=== PATIENT | male | born 1985 | race Caucasian/White ===

== ENCOUNTER 2021-06-27 07:20 | Inpatient (IN) ==
[2021-06-27] MEDS ORDERED: SODIUM CHLORIDE 0.9% 1000ML 1,000 ML IV ONE (07:41)
[2021-06-27] MEDS ORDERED: LORazepam 2 MG/4 ML VIAL IV STA (07:57)
[2021-06-27] MEDS ORDERED: MULTI-VITAMIN INFUSION 10 ML, THIAMINE HCL 100 MG, FOLIC ACID 1 MG in SODIUM CHLORIDE 0... IV ONE (07:57)
--- NOTE | 2021-06-27 07:57 | Emergency Department Note ---
Impression & Plan Alcohol withdrawal syndrome ED Provider Note INFORMANT: Patient ED PROVIDER(S): Jerrell Alvarenga MD CHIEF COMPLAINT: Alcohol withdrawal PLAN: Disposition: Admitted Condition: Good Outpatient prescription management: none Referral: None MEDICAL DECISION MAKING: Patient sent in due to complaints of possible alcohol withdrawal. He was tachycardic. He was tremulous. He was given IV Ativan, normal saline, and a banana bag. He did feel better with this. His blood work revealed an un remarkable CBC and chemistry panel. His LFTs were elevated which is concerning with his history of his significant alcohol abuse. The patient was also found to have possible UTI and urinalysis but denied urinary symptoms. He was covered with IV Rocephin. I discussed further management in the hospital and the patient was in agreement. Consultation was made with the [employer] [facility] service. The patient was evaluated in the ER admitted for further management. Triage Nursing notes reviewed and agree them. Vital Signs: reviewed and remarkable for tachycardia Differential diagnosis: Alcohol withdrawal, alcohol abuse, overdose, toxicologic, infection, hypoglycemia, electrolyte abnormalities, cardiac sources, intracerebral event, neurologic, trauma, as well as other pathologies. Diagnostics interpreted by me: ECG: Twelve-lead ECG reveals a normal sinus rhythm at 82 bpm. Anterior T wave abnormality present. No ST elevation or depression. Prolonged QT. Cardiac Monitoring: Cardiac monitoring ordered by me: The patient was placed on continuous cardiac monitoring and observed. It revealed a normal sinus rhythm at 95 beats per minute without ectopy or evidence of dysrhythmia. Imaging studies: Deferred HPI: The patient is a 35 year old male who presents to the Emergency Room with complaints of alcohol withdrawal. This started this morning and is worst he has experienced. Hx of alcohol abuse and withdrawal. The patient also notes the following associated symptoms, shakiness, nausea, diaphoresis. Notes drinking from morning til night.10-13 drinks per day. The patient has found no relieving factors. Current pain is rated as 0/10. Pt denies LOC, headache, fevers, chills, visual changes, neck pain, chest pain, breathing difficulties, vomiting, abdominal pain, back pain, melena, hematochezia, urinary symptoms, numbness, weakness, lymphadenopathy, rash, or other complaints. ROS: See above HPI for pertinent positives & negatives. A total of 10 systems reviewed and were otherwise negative. PAST MEDICAL HISTORY:See Below , alcohol abuse PAST SURGICAL HISTORY:See Below, FAMILY HISTORY:See Below SOCIAL HISTORY:See Below, +etoh HOME MEDICATIONS:See Below ALLERGIES:See Below VITALS:See Below PHYSICAL EXAMINATION: GENERAL: Awake, alert, uncomfortable-appearing, in no distress HENT: Normocephalic, atraumatic. Oropharynx unremarkable. EYES: Normal conjunctiva. Sclera non-icteric. NECK: Inspection normal. Non-tender. Supple. No nuchal rigidity. FROM. No masses. RESPIRATORY: Clear to auscultation. No wheezes. No rales. Normal respiratory effort. CARDIAC: Tachycardic rate. Normal rhythm. No murmurs. No rubs. Extremities warm and well perfused. Pulses equal. No JVD. GI: Soft, non-distended. No tenderness to palpation. No rebound or guarding. No masses. RECTAL: Deferred. MUSCULOSKELETAL: Atraumatic. Chest examination reveals no tenderness. The back is symmetrical on inspection without obvious abnormality. There is no CVA tenderness to palpation. No joint edema. LOWER EXTREMITIES: Calves are equal size bilaterally and non-tender. No edema. No discoloration. NEURO: Normal sensorium. No sensory or motor deficits noted. SKIN: No rash or jaundice noted. Jerrell Alvarenga MD Past Med/Surg History Medical History No significant medical problems Surgical History No significant past surgical history Family History Other Family history non-contributory Social History Smoking Status: Current every day smoker Second Hand Exposure: No; Do You Dip or Chew Tobacco: No; Tobacco Cessation Education Requested by Patient: No Hx Alcohol Use: Yes Alcohol type: beer and hard liquor Alcohol Intake Frequency Comment: 10-13 drinks/day for the past 2 weeks. History of alochol abuse with binges Hx Substance Use: No Preferred Language: Norwegian Communication Ability: Effective Pipeline Systems Operator Required: No Beliefs That Will Affect Care: None Current Living Situation: Alone How many Children do You have: 0 Other Information That Helps Us Care for You: No Feels Safe at Home: Yes Assistive Devices: None Home Meds Home Medications Medication Instructions Recorded Confirmed No Known Home Medications 06/27/21 06/27/21 Results & Data (ED) Vital Signs Vital Signs - 24 hr 06/27/21 07:20 06/27/21 07:25 06/27/21 07:30 Temperature 36.9 C Temperature Source Oral Pulse Rate 94 H 85 87 Pulse Rate [Apical] Pulse Rate from SpO2 Sensor 88 86 Pulse Rhythm Regular Pulse Rhythm [Apical] Pulse Strength Normal Pulse Strength [Apical] Respiratory Rate 16 15 Respiratory Effort / Characteristics Non-Labored Spontaneous Respiratory Depth Normal Respiratory Pattern Regular Blood Pressure 136/92 136/92 121/79 Blood Pressure [Right Arm] Blood Pressure Mean 106 106 93 Blood Pressure Mean [Right Arm] Blood Pressure Position Lying Blood Pressure Position [Right Arm] Pulse Oximetry 100 100 100 Oxygen Delivery Method Room Air Room Air Room Air Sepsis Recent Fever Within 48 Hours No Sepsis New/Unexplained Change in Mental Status N/A Sepsis Action Taken by Nursing No Action Required 06/27/21 08:01 06/27/21 08:30 06/27/21 09:01 Temperature Temperature Source Pulse Rate 97 H 81 Pulse Rate [Apical] Pulse Rate from SpO2 Sensor 94 H 82 Pulse Rhythm Pulse Rhythm [Apical] Pulse Strength Pulse Strength [Apical] Respiratory Rate 13 15 Respiratory Effort / Characteristics Respiratory Depth Respiratory Pattern Blood Pressure 131/73 124/71 113/75 Blood Pressure [Right Arm] Blood Pressure Mean 92 88 87 Blood Pressure Mean [Right Arm] Blood Pressure Position Blood Pressure Position [Right Arm] Pulse Oximetry 100 100 Oxygen Delivery Method Room Air Room Air Room Air Sepsis Recent Fever Within 48 Hours Sepsis New/Unexplained Change in Mental Status Sepsis Action Taken by Nursing 06/27/21 09:30 06/27/21 10:00 06/27/21 10:30 Temperature Temperature Source Pulse Rate 84 77 84 Pulse Rate [Apical] Pulse Rate from SpO2 Sensor 83 76 84 Pulse Rhythm Pulse Rhythm [Apical] Pulse Strength Pulse Strength [Apical] Respiratory Rate 15 16 15 Respiratory Effort / Characteristics Respiratory Depth Respiratory Pattern Blood Pressure 122/75 116/74 110/68 Blood Pressure [Right Arm] Blood Pressure Mean 90 88 82 Blood Pressure Mean [Right Arm] Blood Pressure Position Blood Pressure Position [Right Arm] Pulse Oximetry 100 100 100 Oxygen Delivery Method Room Air Sepsis Recent Fever Within 48 Hours Sepsis New/Unexplained Change in Mental Status Sepsis Action Taken by Nursing 06/27/21 11:00 06/27/21 11:20 Temperature Temperature Source Pulse Rate 88 Pulse Rate [Apical] 78 Pulse Rate from SpO2 Sensor 87 Pulse Rhythm Pulse Rhythm [Apical] Regular Pulse Strength Pulse Strength [Apical] Normal Respiratory Rate 18 16 Respiratory Effort / Characteristics Non-Labored Spontaneous Respiratory Depth Normal Respiratory Pattern Blood Pressure 119/70 Blood Pressure [Right Arm] 111/65 Blood Pressure Mean 86 Blood Pressure Mean [Right Arm] 80 Blood Pressure Position Blood Pressure Position [Right Arm] Sitting Pulse Oximetry 100 100 Oxygen Delivery Method Room Air Sepsis Recent Fever Within 48 Hours Sepsis New/Unexplained Change in Mental Status Sepsis Action Taken by Nursing Laboratory Data Result diagrams: 06/27/21 07:47 06/27/21 07:47 Lab Results 06/27/21 06/27/21 06/27/21 Range/Units 07:47 07:47 07:47 WBC 6.57 (4.8-10.8) K/uL RBC 3.84 L (4.7-6.1) M/uL Hgb 12.1 L (14.0-18.0) g/dL Hct 34.8 L (42-52) % MCV 90.6 (80-100) fL MCH 31.5 (25-34) pg MCHC 34.8 (32-36) g/dL RDW Std Deviation 40.1 (36.4-46.3) fL RDW Coeff of Courtney 12.1 (11.5-14.5) % Plt Count 155 (130-400) K/uL MPV 10.0 (7.4-10.4) fL Immature Gran % (Auto) 0.2 % Neut % (Auto) 76.3 % Lymph % (Auto) 13.7 % Rogers % (Auto) 9.1 % Eos % (Auto) 0.2 % Baso % (Auto) 0.5 % Neut # (Auto) 5.02 (1.4-6.5) K/uL Lymph # (Auto) 0.90 L (1.2-3.4) K/uL Rogers # (Auto) 0.60 H (0.11-0.59) K/uL Eos # (Auto) 0.01 (0-0.5) K/uL Baso # (Auto) 0.03 (0-0.2) K/uL Immature Gran # (Auto) 0.01 (0.00-0.02) K/uL Sodium 132 L (136-145) mmol/L Potassium 3.4 L (3.5-5.1) mmol/L Chloride 96 L (98-107) mmol/L Carbon Dioxide 26 (21-32) mmol/L Anion Gap 11.0 (3-11) BUN 7 (7-18) mg/dl Creatinine 0.90 (0.6-1.4) mg/dl Est Cr Clr Drug Dosing 121.4 ml/min Est GFR ( Amer) 128.7 ml/min Est GFR (Non-Af Amer) 111.0 ml/min BUN/Creatinine Ratio 7.3 L (10-20) Glucose 108 H (70-99) mg/dl Calcium 8.9 (8.5-10.1) mg/dl Magnesium (1.8-2.4) mg/dl Total Bilirubin 1.0 (0.2-1) mg/dl Direct Bilirubin 0.4 H (0-0.2) mg/dl AST 249 H (15-37) U/L ALT 272 H (12-78) U/L Alkaline Phosphatase 82 (45-117) U/L Total Protein 7.1 (6.4-8.2) gm/dl Albumin 3.9 (3.4-5.0) gm/dl Urine Color Urine Appearance (Clear) Urine pH (4.5-7.5) Ur Specific [place] (1.000-1.030) Urine Protein (Negative) Urine Glucose (UA) (Negative) Urine Ketones (Negative) Urine Blood (Negative) Urine Nitrite (Negative) Urine Bilirubin (Negative) Urine Urobilinogen (Negative) Ur Leukocyte Esterase (Negative) Urine WBC (Auto) (0-5) /hpf Urine RBC (Auto) (0-4) /hpf U Hyaline Cast (Auto) (0-5) /lpf U Epithel Cells (Auto) (0-5) /lpf Urine Bacteria (Auto) (Negative) Ethyl Alcohol mg/dL 5.8 H (0-3) mg/dl COVID-19 Eval Order SARS-CoV-2 (PCR) (Negative) 06/27/21 06/27/21 06/27/21 Range/Units 07:47 08:10 08:10 WBC (4.8-10.8) K/uL RBC (4.7-6.1) M/uL Hgb (14.0-18.0) g/dL Hct (42-52) % MCV (80-100) fL MCH (25-34) pg MCHC (32-36) g/dL RDW Std Deviation (36.4-46.3) fL RDW Coeff of Courtney (11.5-14.5) % Plt Count (130-400) K/uL MPV (7.4-10.4) fL Immature Gran % (Auto) % Neut % (Auto) % Lymph % (Auto) % Rogers % (Auto) % Eos % (Auto) % Baso % (Auto) % Neut # (Auto) (1.4-6.5) K/uL Lymph # (Auto) (1.2-3.4) K/uL Rogers # (Auto) (0.11-0.59) K/uL Eos # (Auto) (0-0.5) K/uL Baso # (Auto) (0-0.2) K/uL Immature Gran # (Auto) (0.00-0.02) K/uL Sodium (136-145) mmol/L Potassium (3.5-5.1) mmol/L Chloride (98-107) mmol/L Carbon Dioxide (21-32) mmol/L Anion Gap (3-11) BUN (7-18) mg/dl Creatinine (0.6-1.4) mg/dl Est Cr Clr Drug Dosing ml/min Est GFR ( Amer) ml/min Est GFR (Non-Af Amer) ml/min BUN/Creatinine Ratio (10-20) Glucose (70-99) mg/dl Calcium (8.5-10.1) mg/dl Magnesium 2.6 H (1.8-2.4) mg/dl Total Bilirubin (0.2-1) mg/dl Direct Bilirubin (0-0.2) mg/dl AST (15-37) U/L ALT (12-78) U/L Alkaline Phosphatase (45-117) U/L Total Protein (6.4-8.2) gm/dl Albumin (3.4-5.0) gm/dl Urine Color Yellow Urine Appearance Clear (Clear) Urine pH 8.0 H (4.5-7.5) Ur Specific [place] 1.006 (1.000-1.030) Urine Protein Negative (Negative) Urine Glucose (UA) Negative (Negative) Urine Ketones Negative (Negative) Urine Blood Negative (Negative) Urine Nitrite Positive A (Negative) Urine Bilirubin Negative (Negative) Urine Urobilinogen Negative (Negative) Ur Leukocyte Esterase Trace H (Negative) Urine WBC (Auto) 1-5 (0-5) /hpf Urine RBC (Auto) 0-4 (0-4) /hpf U Hyaline Cast (Auto) 0 (0-5) /lpf U Epithel Cells (Auto) 10-20 H (0-5) /lpf Urine Bacteria (Auto) 2+ H (Negative) Ethyl Alcohol mg/dL (0-3) mg/dl COVID-19 Eval Order Covid19 at [facility] SARS-CoV-2 (PCR) (Negative) 06/27/21 Range/Units 08:10 WBC (4.8-10.8) K/uL RBC (4.7-6.1) M/uL Hgb (14.0-18.0) g/dL Hct (42-52) % MCV (80-100) fL MCH (25-34) pg MCHC (32-36) g/dL RDW Std Deviation (36.4-46.3) fL RDW Coeff of Courtney (11.5-14.5) % Plt Count (130-400) K/uL MPV (7.4-10.4) fL Immature Gran % (Auto) % Neut % (Auto) % Lymph % (Auto) % Rogers % (Auto) % Eos % (Auto) % Baso % (Auto) % Neut # (Auto) (1.4-6.5) K/uL Lymph # (Auto) (1.2-3.4) K/uL Rogers # (Auto) (0.11-0.59) K/uL Eos # (Auto) (0-0.5) K/uL Baso # (Auto) (0-0.2) K/uL Immature Gran # (Auto) (0.00-0.02) K/uL Sodium (136-145) mmol/L Potassium (3.5-5.1) mmol/L Chloride (98-107) mmol/L Carbon Dioxide (21-32) mmol/L Anion Gap (3-11) BUN (7-18) mg/dl Creatinine (0.6-1.4) mg/dl Est Cr Clr Drug Dosing ml/min Est GFR ( Amer) ml/min Est GFR (Non-Af Amer) ml/min BUN/Creatinine Ratio (10-20) Glucose (70-99) mg/dl Calcium (8.5-10.1) mg/dl Magnesium (1.8-2.4) mg/dl Total Bilirubin (0.2-1) mg/dl Direct Bilirubin (0-0.2) mg/dl AST (15-37) U/L ALT (12-78) U/L Alkaline Phosphatase (45-117) U/L Total Protein (6.4-8.2) gm/dl Albumin (3.4-5.0) gm/dl Urine Color Urine Appearance (Clear) Urine pH (4.5-7.5) Ur Specific [place] (1.000-1.030) Urine Protein (Negative) Urine Glucose (UA) (Negative) Urine Ketones (Negative) Urine Blood (Negative) Urine Nitrite (Negative) Urine Bilirubin (Negative) Urine Urobilinogen (Negative) Ur Leukocyte Esterase (Negative) Urine WBC (Auto) (0-5) /hpf Urine RBC (Auto) (0-4) /hpf U Hyaline Cast (Auto) (0-5) /lpf U Epithel Cells (Auto) (0-5) /lpf Urine Bacteria (Auto) (Negative) Ethyl Alcohol mg/dL (0-3) mg/dl COVID-19 Eval Order SARS-CoV-2 (PCR) NEGATIVE (Negative) Administered Medications Folic Acid (Folic Acid 1 Mg Tab) 1 mg PO QA FREDI Stop: 07/27/21 13:59 Last Admin: 06/27/21 14:34 Dose: 1 mg Documented by: [id number] Sodium Chloride (Nss 1000ml) 1,000 mls @ 125 mls/hr IV .Q8H FREDI Stop: 07/27/21 13:20 Last Admin: 06/27/21 14:33 Dose: 125 mls/hr Documented by: [id number] Thiamine HCl (Thiamine Hcl 100 Mg Tab) 100 mg PO QAM FREID Stop: 07/27/21 13:59 Last Admin: 06/27/21 14:34 Dose: 100 mg Documented by: [id number] Discontinued Medications Gabapentin (Gabapentin 600 Mg Tab) 1,200 mg PO NOW ONE Stop: 06/27/21 14:01 Last Admin: 06/27/21 13:47 Dose: 1,200 mg Documented by: [id number] Sodium Chloride (Nss 1000ml) 1,000 mls @ 999 mls/hr IV .Q1H1M ONE Stop: 06/27/21 08:41 Last Infusion: 06/27/21 08:39 Dose: 0 mls/hr Documented by: [id number] Admin: 06/27/21 07:57 Dose: 999 mls/hr Documented by: [id number] Multivitamins 10 ml/ Thiamine HCl 100 mg/ Folic Acid 1 mg/Sodium Chloride 1,011.2 mls @ 1,011.2 mls/hr IV .Q1H ONE Stop: 06/27/21 08:56 Last Infusion: 06/27/21 09:44 Dose: 0 mls/hr Documented by: [id number] Admin: 06/27/21 08:39 Dose: 1,011.2 mls/hr Documented by: [id number] Lorazepam (Ativan) 2 mg in 4 mls @ 4 mls/min IV NOW STA Stop: 06/27/21 07:58 Last Admin: 06/27/21 08:08 Dose: 4 mls/min Documented by: [id number] Ceftriaxone Sodium (Rocephin) 2,000 mg in 70 mls @ 140 mls/hr IV NOW STA Stop: 06/27/21 11:55 Last Infusion: 06/27/21 13:00 Dose: 0 mls/hr Documented by: [id number] Admin: 06/27/21 11:48 Dose: 140 mls/hr Documented by: [id number] Ondansetron HCl (Ondansetron Inj 2 Mg/Ml 2 Ml Vial) 4 mg IV NOW STA Stop: 06/27/21 08:02 Last Admin: 06/27/21 08:08 Dose: 4 mg Documented by: [id number] Potassium Chloride (Potassium Chloride Crtab 20 Meq Tabcr) 40 meq PO NOW STA Stop: 06/27/21 12:41 Last Admin: 06/27/21 14:33 Dose: 40 meq Documented by: [id number] Discharge Plan Visit Data Chief Complaint: Alcohol Withdrawal Stated Complaint: ALCOHOL WITHDRAWAL ED Provider: Jerrell Alvarenga Discharge Problem: Alcohol withdrawal syndrome Patient Disposition: Admitted As Inpatient Discharge Instructions Interventions: ED Discharge Assessment Last Done: 06/27/21 12:40
[2021-06-27] MEDS ORDERED: ONDANSETRON INJ 2 MG/ML 2 ML VIAL IV STA (08:01)
[2021-06-27 08:16] LABS: Basophils # (auto) 0.03 K/uL (0-0.2); Basophils % (auto) 0.5 %; Eosinophils # (auto) 0.01 K/uL (0-0.5); Eosinophils % (auto) 0.2 %; Hematocrit (blood only) 34.8 % (42-52); Hemoglobin 12.1 g/dL (14.0-18.0); Immature Granulocytes # (auto) 0.01 K/uL (0.00-0.02); Immature Granulocytes % (auto) 0.2 %; Lymphocytes % (auto) 13.7 %; Mean Corpuscular Hemoglobin 31.5 pg (25-34); Mean Corpuscular Hgb Conc 34.8 g/dL (32-36); Mean Corpuscular Volume 90.6 fL (80-100); Monocytes % (auto) 9.1 %; Neutrophils # (auto) 5.02 K/uL (1.4-6.5); Neutrophils % (auto) 76.3 %; Platelet Count 155 K/uL (130-400); RDW Coefficient of Variation 12.1 % (11.5-14.5); RDW Standard Deviation 40.1 fL (36.4-46.3); Red Blood Count 3.84 M/uL (4.7-6.1); White Blood Count 6.57 K/uL (4.8-10.8)
[2021-06-27 08:28] LABS: Appearance Urine Clear (Clear); Bacteria Urine Automated 2+ (Negative); Bilirubin Urine Negative (Negative); Blood Urine Negative (Negative); Cast Urine Automated 0 /lpf (0-5); Color Urine Yellow; Glucose Urine UA Negative (Negative); Ketones Urine Negative (Negative); Leukocyte Esterase Urine Trace (Negative); Nitrite Urine Positive (Negative); Protein Urine Negative (Negative); RBC Urine Automated 0-4 /hpf (0-4); Specific Gravity Urine 1.006 (1.000-1.030); Urobilinogen Urine Negative (Negative)
[2021-06-27 08:34] LABS: Albumin Level 3.9 gm/dl (3.4-5.0); BUN Creatinine Ratio 7.3 (10-20); Bilirubin Direct 0.4 mg/dl (0-0.2); Calcium 8.9 mg/dl (8.5-10.1); Creatinine Clr Calc Pharmacy 121.4 ml/min; Est GFR (African American) 128.7 ml/min; Potassium 3.4 mmol/L (3.5-5.1)
--- NOTE | 2021-06-27 08:34 | Electrocardiogram Report ---
Test Reason : Blood Pressure : / mmHG Vent. Rate : 082 BPM Atrial Rate : 082 BPM P-R Int : 140 ms QRS Dur : 096 ms QT Int : 438 ms P-R-T Axes : 072 076 072 degrees QTc Int : 511 ms Poor data quality, interpretation may be adversely affected Normal sinus rhythm Prolonged QT Abnormal ECG No previous ECGs available Confirmed by Familia Nava ([id number]) on 06/27/2021 8:34:05 AM Referred By: Confirmed By:Familia Nava
[2021-06-27 08:37] LABS: Total Protein 7.1 gm/dl (6.4-8.2)
[2021-06-27] MEDS ORDERED: cefTRIAXone SODIUM 2,000 MG/70 ML BAG IV STA (11:26)
--- NOTE | 2021-06-27 12:28 | History & Physical Report ---
Date of Service June 27, 2021 Assessment & Plan (1) Alcohol withdrawal syndrome: Plan: -admit to tele -patient presenting from home with concerns for alcohol withdrawal. History of alcohol abuse with binges for the past 3-4 years. Has been drinking 10-13 drinks/day for the past two weeks. -alcohol withdrawal protocol with gabapentin, PRN Ativan -IVF, thiamine, folic acid -psych consult (2) Elevated LFTs: Plan: -AST 249, ALT 272 -likely due to alcohol use -check liver US -trend LFTs (3) Abnormal urinalysis: Plan: -UA suggests possible UTI -s/p IV ceftriaxone in the ED -continue IV ceftriaxone pending culture results -does not appear septic (4) DVT prophylaxis: Plan: -SCDs History of Present Illness Chief Complaint: Alcohol Withdrawal Primary Care Provider: SYLWIA PCP 35 year old male without significant PMH or PSH aside from alcohol abuse who presents to the ED for evaluation of alcohol withdrawal. Patient reports drinking 10-13 drinks/day for the past 2 weeks. Patient reports a history of alcohol abuse for the past 3-4 years. Patient reports he initially only would drink on the weekends however it progressed to drinking several nights/week and going on week long binges. Prior to two weeks ago, patient had been sober for 42 days. He also has been active with [facility] in the past as well. Patient reports last drink was last night around 10pm. At 0200, patient developed nausea, tremors, and anxiety. He was fearful of having an alcohol withdrawal seizure. He does not have a history of alcohol withdrawal seizures. He called EMS and was brought to the ED for further evaluation. Patient reports some vomiting over the past couple of weeks. Denies hematemesis and coffee ground emesis. Diarrhea at times too however denies BRBPR and dark tarry stools. Some intermittent abdominal pain when vomiting. Denies fever and chills. No chest pain and shortness of breath. Denies lightheadedness, dizziness, diaphoresis, and syncopal events. No urinary symptoms. In the ED, labs show K+ 3.4, AST 249, ALT 272. UA suggestive of possible UTI. Patient received IV ceftriaxone, IV lorazepam, banana bag, IV najma, and IVF. Home Medications Medication Instructions Recorded Confirmed Type No Known Home Medications 09/20/21 09/20/21 History Past Med/Surg History Medical History No significant medical problems Surgical History No significant past surgical history Family History Other Family history non-contributory Social History Smoking Status: Current every day smoker Second Hand Exposure: No; Do You Dip or Chew Tobacco: No; Tobacco Cessation Education Requested by Patient: No Hx Alcohol Use: Yes Alcohol type: beer and hard liquor Alcohol Intake Frequency Comment: 10-13 drinks/day for the past 2 weeks. History of alochol abuse with binges Hx Substance Use: No Preferred Language: Nigerian Communication Ability: Effective Building Maintenance Technician Required: No Beliefs That Will Affect Care: None Current Living Situation: Alone How many Children do You have: 0 Other Information That Helps Us Care for You: No Feels Safe at Home: Yes Assistive Devices: None Review of Systems Review of Systems: ROS per HPI, all other systems reviewed and negative Physical Exam Constitutional: WD/WN, vitals as above Eyes: PERRL, conjunctivae normal, anicteric sclerae ENMT: external ear and nose normal, oropharynx normal Respiratory: normal respiratory effort, lungs clear to auscultation Cardiovascular: Rate/Rhythm: regular rate and regular rhythm Vessels: normal peripheral pulses Extremities: no edema Gastrointestinal (Abdomen): normal bowel sounds, soft, nontender, no hepatosplenomegaly Musculoskeletal: no cyanosis or clubbing, extremities motor strength 5/5 Skin: no rashes, warm and dry Neurologic: PERRL, EOMI, accommodation nl, no face palsy, no dysarthria Psychiatric: A+Ox3, euthymic affect Results & Data Results & Data ([facility]) Vital Signs (Past 12 Hours) Vital Signs Temp Pulse Pulse Resp BP BP Pulse Ox 06/27/21 11:20 78 16 111/65 100 06/27/21 11:00 88 18 119/70 100 06/27/21 10:30 84 15 110/68 100 06/27/21 10:00 77 16 116/74 100 06/27/21 09:30 84 15 122/75 100 06/27/21 09:01 81 15 113/75 100 06/27/21 08:30 97 H 13 124/71 100 06/27/21 08:01 131/73 06/27/21 07:30 87 121/79 100 06/27/21 07:25 85 15 136/92 100 06/27/21 07:20 36.9 C 94 H 16 136/92 100 Laboratory Results Short CBC 06/27/21 Range/Units 07:47 WBC 6.57 (4.8-10.8) K/uL Hgb 12.1 L (14.0-18.0) g/dL Hct 34.8 L (42-52) % Plt Count 155 (130-400) K/uL BMP 06/27/21 07:47 Sodium 132 L Potassium 3.4 L Chloride 96 L Carbon Dioxide 26 BUN 7 Creatinine 0.90 Glucose 108 H Calcium 8.9 Liver Function 06/27/21 Range/Units 07:47 Total Bilirubin 1.0 (0.2-1) mg/dl Direct Bilirubin 0.4 H (0-0.2) mg/dl AST 249 H (15-37) U/L ALT 272 H (12-78) U/L Alkaline Phosphatase 82 (45-117) U/L Albumin 3.9 (3.4-5.0) gm/dl Urine 06/27/21 Range/Units 08:10 Urine Color Yellow Urine Appearance Clear (Clear) Urine pH 8.0 H (4.5-7.5) Ur Specific [place] 1.006 (1.000-1.030) Urine Protein Negative (Negative) Urine Glucose (UA) Negative (Negative) Code Status & VTE Plan VTE Prophylaxis Plan VTE Prophylaxis will be ordered: Yes Supervising Physician Co-Signing Physician Notes Patient seen and examined by me, care coordinated with JESSICA Nieto, please refer to her note above for further detail. Pt is a 35 y/o male without significant PMH or PSH aside from alcohol abuse who presents to the ED for evaluation of alcohol withdrawal. Patient reports drinking 10-13 drinks/day for the past 2 weeks. Prior to two weeks ago, patient had been sober for 42 days. Reports last drink was last night around 10pm. At 0200, patient developed nausea, tremors, and anxiety. He was fearful of having an alcohol withdrawal seizure. He does not have a history of alcohol withdrawal seizures. AST 249, ALT 272. UA suggestive of possible UTI. Patient received IV ceftriaxone, IV lorazepam, banana bag, IV najma, and IVF. Currently patient is sitting up in bed, in no acute distress, reports feeling much better already, reports shivering at home and that has subsided. He is awake alert oriented answering questions appropriately. Denies any chest pain, shortness of breath palpitations. Also denies any abdominal pain, or dysuria. Says that he was not eating as much during the past 2 weeks when he was drinking, he just ate in his room, without much difficulty. Abdomen is soft nontender nondistended, positive bowel sounds. Lungs are clear to auscultation by exam and wheezing or Crackles. Heart sounds regular slightly tachycardic. No lower extremity edema. Skin is warm dry, without any rashes. Continue to closely monitor, placed on alcohol withdrawal protocol, await abdominal ultrasound. Michelle Barrow MD
[2021-06-27] MEDS ORDERED: POTASSIUM CHLORIDE CRTAB 20 MEQ TABCR PO STA (12:40)
[2021-06-27] MEDS ORDERED: LORazepam 1 MG/2 ML VIAL IV PRN (13:21)
[2021-06-27] MEDS ORDERED: LORazepam 2 MG/4 ML VIAL IV PRN (13:21)
[2021-06-27] MEDS ORDERED: LORazepam 3 MG/6 ML VIAL IV PRN (13:21)
[2021-06-27] MEDS ORDERED: GABAPENTIN 1200MG ALCOHOL WITHDRAWAL LOAD PO STA (13:21)
[2021-06-27] MEDS ORDERED: ATIVAN IV ALCOHOL WITHDRAWL IV PRN (13:21)
[2021-06-27] MEDS ORDERED: ACETAMINOPHEN 325 MG TAB PO PRN (13:21)
[2021-06-27] MEDS ORDERED: GABAPENTIN 600 MG TAB PO ONE (14:00)
--- NOTE | 2021-06-27 14:30 | Ultrasound Report ---
US liver CLINICAL INDICATION: MN ^elevated LFTs. TECHNIQUE: Multiple real-time sonographic images of the right upper quadrant were obtained. Comparison: None available at the time of this dictation. FINDINGS: The liver is diffusely echogenic in appearance with poor ultrasound penetration, with normal contour, which is consistent with fatty infiltration. Liver measures 18.4 cm in craniocaudal dimension, enlar ged. No focal mass lesions are seen. No intrahepatic ductal dilatation is seen. Layering sludge i s seen in the gallbladder. The gallbladder wall is not thickened,. There is no pericholecystic fluid present. The common duct is normal in caliber, measuring 3 mm at the level of the hepatic artery. A sonographic Gordon's sign was not elicited by the hospice spiritual care coordinator. The visualized portions of the panc reas appear normal. The right kidney shows normal echogenicity, cortical thickness and renal contour. The right kidney sh ows no evidence of hydronephrosis or mass. No ascites or free fluid is seen in Black's pouch. IMPRESSION: 1. No acute abnormality. 2. Layering sludge in the gallbladder without acute cholecystitis. 3. Hepatic steatosis and hepatomegaly. ACT 112: Negative or not required by law. Electronically signed by: Ho Farias M.D. 06/27/2021 2:29 PM
[2021-06-27] MEDS: SODIUM CHLORIDE 0.9% 1000ML 1,000 ML IV SCH ×2 (14:33→20:50)
[2021-06-27] MEDS: THIAMINE HCL 100 MG TAB PO SCH (14:34)
[2021-06-27] MEDS: FOLIC ACID 1 MG TAB PO SCH (14:34)
[2021-06-27] MEDS ORDERED: PIPERACILL/TAZOBAC CONSULT ACTIVE PRN (16:49)
[2021-06-27] MEDS ORDERED: PIPERACILLIN/TAZOBACTAM 4.5 GM in DEXTROSE 5% 100 ML IV ONE (17:00)
[2021-06-27] MEDS: GABAPENTIN 600 MG TAB PO SCH (20:12)
[2021-06-27] MEDS: PIPERACILLIN/TAZOBACTAM 3.375 GM in DEXTROSE 5% 100 ML IV SCH (21:19)
[2021-06-28] MEDS: GABAPENTIN 600 MG TAB PO SCH ×3 (01:13→17:44)
[2021-06-28] MEDS: SODIUM CHLORIDE 0.9% 1000ML 1,000 ML IV SCH ×3 (04:45→21:11)
[2021-06-28] MEDS: PIPERACILLIN/TAZOBACTAM 3.375 GM in DEXTROSE 5% 100 ML IV SCH (05:56)
[2021-06-28 08:12] LABS: Hematocrit (blood only) 30.6 % (42-52); Hemoglobin 10.3 g/dL (14.0-18.0); Mean Corpuscular Hemoglobin 31.2 pg (25-34); Mean Corpuscular Hgb Conc 33.7 g/dL (32-36); Mean Corpuscular Volume 92.7 fL (80-100); Mean Platelet Volume 9.9 fL (7.4-10.4); Platelet Count 123 K/uL (130-400); RDW Coefficient of Variation 12.5 % (11.5-14.5); RDW Standard Deviation 42.6 fL (36.4-46.3); White Blood Count 3.51 K/uL (4.8-10.8)
[2021-06-28 08:23] LABS: Albumin Globulin Ratio 1.1 (0.9-2); Albumin Level 3.1 gm/dl (3.4-5.0); BUN Creatinine Ratio 7.6 (10-20); Bilirubin,Total 1.3 mg/dl (0.2-1); Calcium 8.6 mg/dl (8.5-10.1); Creatinine Clr Calc Pharmacy 142.6 ml/min; Est GFR (African American) 133.1 ml/min; Est GFR (Non-African American) 114.8 ml/min; Globulin 2.7 gm/dl (2.5-4.0); Magnesium 2.6 mg/dl (1.8-2.4); Phosphorus 3.9 mg/dl (2.5-4.9); Potassium 4.2 mmol/L (3.5-5.1); Total Protein 5.9 gm/dl (6.4-8.2)
[2021-06-28] MEDS: FOLIC ACID 1 MG TAB PO SCH (08:37)
[2021-06-28] MEDS: THIAMINE HCL 100 MG TAB PO SCH (08:37)
[2021-06-28] MEDS ORDERED: cefTRIAXone SODIUM 1,000 MG in DEXTROSE 5% 50 ML IV SCH (11:00)
[2021-06-28] MEDS ORDERED: cefTRIAXone SODIUM 2,000 MG in DEXTROSE 5% 50 ML IV SCH ×2 (11:00)
--- NOTE | 2021-06-28 11:32 | Hospitalist Progress Note ---
Date of Service June 28, 2021 Assessment & Plan (1) Alcohol withdrawal syndrome: Plan: -patient presenting from home with concerns for alcohol withdrawal. History of alcohol abuse with binges for the past 3-4 years. Has been drinking 10-13 drinks/day for the past two weeks. -alcohol withdrawal protocol with gabapentin, PRN Ativan -IVF, thiamine, folic acid -psych consult (2) Elevated LFTs: Plan: -AST 249, ALT 272 on admission -likely due to alcohol use -liver US - Gallbladder sludge noted on ultrasound, temperature slightly elevated at 37.6 C, LFTs elevated however in the setting of alcohol abuse. Placed on zosyn and discussed w/ GI- per GI Tbili up very slightly today; may reflect intrahepatic cholestasis. Given pt's normal ALP and CBD of 3 mm, this is not consistent with biliary obstruction/CBD stone/sludge. Would defer MRI/MRCP. Would trend daily LFTs. -Thorough blood work ordered by GI for elevated LFTs as well -trend LFTs (3) Abnormal urinalysis: Plan: -UA suggests possible UTI -s/p IV ceftriaxone in the ED -continue IV ceftriaxone pending culture results -does not appear septic (4) DVT prophylaxis: Plan: -SCDs Admission and Anticipated Discharge Date Admission Date: June 27, 2021 Subjective Patient seen in follow-up of alcohol withdrawal, alcohol abuse, elevated LFTs and gallbladder sludge Patient sitting up in bed, in no acute distress Denies any fevers, chills, chest pain, shortness of breath, abdominal pain, nausea or vomiting, tolerating diet Specifically denies any right upper quadrant pain, also denies any dysuria No hallucinations or tremors Review of Systems Review of Systems: All systems reviewed & are unremarkable except as noted in Subjective Physical Exam Physical Exam: Constitutional: WD/WN, vitals as above Eyes: PERRL, EOMI, conjunctivae normal, anicteric sclerae ENMT: external ear and nose normal, oropharynx normal Respiratory: normal respiratory effort, lungs clear to auscultation Cardiovascular: Rate/Rhythm: regular rate and regular rhythm Vessels: normal peripheral pulses Extremities: no edema Gastrointestinal (Abdomen): normal bowel sounds, soft, nontender Musculoskeletal: no cyanosis or clubbing, extremities motor strength 5/5 Skin: no rashes, warm and dry Neurologic: PERRL, EOMI,no face palsy, no dysarthria Psychiatric: A+Ox3, euthymic affect Results & Data Results & Data ([facility]) Vital Signs (Past 12 Hours) Vital Signs Temp Pulse Pulse Pulse Resp BP Pulse Ox 06/28/21 08:07 36.8 C 79 20 129/62 96 06/28/21 08:00 54 L 06/28/21 04:10 36.7 C 73 14 108/71 99 06/28/21 00:37 36.9 C 58 L 18 106/66 99 06/27/21 23:59 62 Laboratory Results 06/28/21 06/28/21 06/27/21 Range/Units 06:58 06:58 07:47 WBC 3.51 L (4.8-10.8) K/uL RBC 3.30 L (4.7-6.1) M/uL Hgb 10.3 L (14.0-18.0) g/dL Hct 30.6 L (42-52) % MCV 92.7 (80-100) fL MCH 31.2 (25-34) pg MCHC 33.7 (32-36) g/dL RDW Std Deviation 42.6 (36.4-46.3) fL RDW Coeff of Courtney 12.5 (11.5-14.5) % Plt Count 123 L (130-400) K/uL MPV 9.9 (7.4-10.4) fL Sodium 140 D (136-145) mmol/L Potassium 4.2 D (3.5-5.1) mmol/L Chloride 108 H (98-107) mmol/L Carbon Dioxide 24 (21-32) mmol/L Anion Gap 8.0 (3-11) BUN 6 L (7-18) mg/dl Creatinine 0.83 (0.6-1.4) mg/dl Est Cr Clr Drug Dosing 142.6 ml/min Est GFR ( Amer) 133.1 ml/min Est GFR (Non-Af Amer) 114.8 ml/min BUN/Creatinine Ratio 7.6 L (10-20) Glucose 91 (70-99) mg/dl Calcium 8.6 (8.5-10.1) mg/dl Phosphorus 3.9 (2.5-4.9) mg/dl Magnesium 2.6 H 2.6 H (1.8-2.4) mg/dl Total Bilirubin 1.3 H (0.2-1) mg/dl AST 260 H (15-37) U/L ALT 265 H (12-78) U/L Alkaline Phosphatase 60 (45-117) U/L Total Protein 5.9 L (6.4-8.2) gm/dl Albumin 3.1 L (3.4-5.0) gm/dl Globulin 2.7 (2.5-4.0) gm/dl Albumin/Globulin Ratio 1.1 (0.9-2) Medications Administered Current Inpatient Medications Acetaminophen (Acetaminophen 325 Mg Tab) 650 mg PO Q4H PRN PRN Reason: Pain or Fever Stop: 07/27/21 13:20 Folic Acid (Folic Acid 1 Mg Tab) 1 mg PO QAM FREDI Stop: 07/27/21 13:59 Last Admin: 06/28/21 08:37 Dose: 1 mg Documented by: Gabapentin (Gabapentin 600 Mg Tab) 600 mg PO Q8H FREDI Stop: 06/29/21 02:01 Last Admin: 06/28/21 10:11 Dose: 600 mg Documented by: Gabapentin (Gabapentin 600 Mg Tab) 600 mg PO Q12H FREDI Stop: 06/30/21 02:01 Gabapentin (Gabapentin 600 Mg Tab) 600 mg PO Q24H FREDI Stop: 07/01/21 02:01 Lorazepam (Ativan) 1 mg in 2 mls @ 2 mls/min IV UD PRN; Protocol PRN Reason: EtOH Withdrawl AWSS Score 6,7 Stop: 07/27/21 13:20 Lorazepam (Ativan) 3 mg in 6 mls @ 4 mls/min IV ONCE PRN; Protocol PRN Reason: EtOH Withdrawl AWSS Score >=10 Stop: 07/27/21 13:20 Sodium Chloride (Nss 1000ml) 1,000 mls @ 125 mls/hr IV .Q8H FREDI Stop: 07/27/21 13:20 Last Admin: 06/28/21 04:45 Dose: 125 mls/hr Documented by: Lorazepam (Ativan) 2 mg in 4 mls @ 4 mls/min IV UD PRN; Protocol PRN Reason: EtOH Withdrawl AWSS Score 8,9 Stop: 07/27/21 13:20 Piperacillin Sod/Tazobactam (Sod 3.375 gm/ Dextrose) 115 mls @ 28.75 mls/hr IV Q8H FREDI; Protocol Stop: 07/07/21 21:59 Last Infusion: 06/28/21 10:05 Dose: Infused Documented by: Miscellaneous Information (Piperacill/Tazobac Consult Active) 1 ea N/A UD PRN PRN Reason: Consult Stop: 07/27/21 16:48 Thiamine HCl (Thiamine Hcl 100 Mg Tab) 100 mg PO QAM [facility] Stop: 07/27/21 13:59 Last Admin: 06/28/21 08:37 Dose: 100 mg Documented by:
--- NOTE | 2021-06-28 12:18 | Gastrointestinal Consultation ---
Date of Consultation June 28, 2021 Assessment & Plan (1) Elevated LFTs: This is 35-year-old male with history of heavy alcohol use, admitted with symptoms of alcohol withdrawal. Last drink was over the weekend. GI consulted for elevated LFTs. Unclear if these are acute or chronic, however, likely associated with alcohol use. On exam, he is well-appearing, abdomen soft and nontender; not encephalopathic. - Check INR - Evaluate Maddrey's discriminant function to evaluate whether he would benefit from steroids for alc hep - Check acute hepatitis panel, AIH labs, ceruloplasmin, alpha-1 antitrypsin deficiency - Trend LFTs, - Would benefit from outpatient follow-up, recommend he establish with PCP to ensure LFTs trend to normal - Would avoid hepatotoxins, including Tylenol - Recommend strict ETOH avoidance - Recommend patient consider EtOH rehab Thank you for allowing us to participate in the care of this patient. Please call with any acute changes, questions or concerns. Please see addendum below with additional recommendation from my supervising physician. - Supervising Physician Co-Signing Physician Notes I have personally seen and examined the patient with Jayde Sanon PA-C. Her note reflects my exam and findings. I agree with her impression and plan. Patient states he feels better. Hungry. Work up for other liver diseases. Stanley Mcdonald M.D. History of Present Illness Attending Physician: Tripp Barrow MD History of Present Illness This is a 35-year-old male with no significant past medical history admitted after presenting with symptoms of alcohol withdrawal including tremors, anxiety. On arrival, labs notable for AST 249, ALT 272, normal alk phos and T bili, hypokalemia and hyponatremia noted, Hgb 12. UA suggestive of possible UTI. He had a slight temp. Ultrasound abdomen with gallbladder sludge, no acute cholecystitis, no dom dil, hepatic steatosis and hepatomegaly noted. He received IV ABX, IV lorazepam, banana bag, IV Zofran, and IVF. Overnight, he reports his symptoms are improving. Is tolerating a regular diet. When he was drinking, was not eating much in the way of nutrition. Today LFTs largely unchanged, T bili 1.3 denies nausea vomiting, abdominal pain, jaundice, hematemesis, melena or hematochezia, change in bowel habits or appetite, heartburn, chest pain or shortness of breath, leg edema, headaches or rashes. He has been drinking heavily on and off for several years, often on binges. For the last 2 weeks, had been drinking 10-13 drinks per day. He is a professor at the [employer]. Denies IV or intranasal drug use, no herbal meds, Tylenol, NSAIDs, history of liver problems. Home Medications Medication Instructions Recorded Confirmed Type No Known Home Medications 06/27/21 06/27/21 History Patient History Medical History No significant medical problems Surgical History No significant past surgical history Family History Other Family history non-contributory Social History Smoking Status: Current every day smoker Second Hand Exposure: No; Do You Dip or Chew Tobacco: No; Tobacco Cessation Education Requested by Patient: No Hx Alcohol Use: Yes Alcohol type: beer and hard liquor Alcohol Intake Frequency Comment: 10-13 drinks/day for the past 2 weeks. 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 Beliefs That Will Affect Care: None Current Living Situation: Alone How many Children do You have: 0 Other Information That Helps Us Care for You: No Feels Safe at Home: Yes Assistive Devices: None Review of Systems Review of Systems: A complete review of systems was performed and negative except as noted in HPI Physical Exam Constitutional: WD/WN, vitals as above Eyes: Sclera anicteric Respiratory: normal respiratory effort, lungs clear to auscultation Cardiovascular: RRR, no murmur, no edema Gastrointestinal (Abdomen): normal bowel sounds, soft, nontender, no hep atosplenomegaly Skin: no rashes, warm and dry Neurologic: No asterixis Psychiatric: A+Ox3, euthymic affect Results & Data ([facility]) Vital Signs (Past 12 Hours) Vital Signs Temp Pulse Pulse Pulse Resp BP Pulse Ox 06/28/21 08:07 36.8 C 79 20 129/62 96 06/28/21 08:00 54 L 06/28/21 04:10 36.7 C 73 14 108/71 99 06/28/21 00:37 36.9 C 58 L 18 106/66 99 06/27/21 23:59 62 Laboratory Results 06/28/21 06/28/21 06/27/21 Range/Units 06:58 06:58 07:47 WBC 3.51 L (4.8-10.8) K/uL RBC 3.30 L (4.7-6.1) M/uL Hgb 10.3 L (14.0-18.0) g/dL Hct 30.6 L (42-52) % MCV 92.7 (80-100) fL MCH 31.2 (25-34) pg MCHC 33.7 (32-36) g/dL RDW Std Deviation 42.6 (36.4-46.3) fL RDW Coeff of Courtney 12.5 (11.5-14.5) % Plt Count 123 L (130-400) K/uL MPV 9.9 (7.4-10.4) fL Sodium 140 D (136-145) mmol/L Potassium 4.2 D (3.5-5.1) mmol/L Chloride 108 H (98-107) mmol/L Carbon Dioxide 24 (21-32) mmol/L Anion Gap 8.0 (3-11) BUN 6 L (7-18) mg/dl Creatinine 0.83 (0.6-1.4) mg/dl Est Cr Clr Drug Dosing 142.6 ml/min Est GFR ( Amer) 133.1 ml/min Est GFR (Non-Af Amer) 114.8 ml/min BUN/Creatinine Ratio 7.6 L (10-20) Glucose 91 (70-99) mg/dl Calcium 8.6 (8.5-10.1) mg/dl Phosphorus 3.9 (2.5-4.9) mg/dl Magnesium 2.6 H 2.6 H (1.8-2.4) mg/dl Total Bilirubin 1.3 H (0.2-1) mg/dl AST 260 H (15-37) U/L ALT 265 H (12-78) U/L Alkaline Phosphatase 60 (45-117) U/L Total Protein 5.9 L (6.4-8.2) gm/dl Albumin 3.1 L (3.4-5.0) gm/dl Globulin 2.7 (2.5-4.0) gm/dl Albumin/Globulin Ratio 1.1 (0.9-2) Diagnostic Findings US ABD: The liver is diffusely echogenic in appearance with poor ultrasound penetration, with normal contour, which is consistent with fatty infiltration. Liver measures 18.4 cm in craniocaudal dimension, enlarged. No focal mass lesions are seen. No intrahepatic ductal dilatation is seen. Layering sludge is seen in the gallbladder. The gallbladder wall is not thickened,. There is no pericholecystic fluid present. The common duct is normal in caliber, measuring 3 mm at the level of the hepatic artery. A sonographic Gordon's sign was not elicited by the metalworker. The visualized portions of the pancreas appear normal. The right kidney shows normal echogenicity, cortical thickness and renal contour. The right kidney shows no evidence of hydronephrosis or mass. No ascites or free fluid is seen in Black's pouch. IMPRESSION: 1. No acute abnormality. 2. Layering sludge in the gallbladder without acute cholecystitis. 3. Hepatic steatosis and hepatomegaly.
[2021-06-28 13:10] LABS: Hepatitis B Surf Ag Rflx Conf Neg (Neg)
[2021-06-28 13:38] LABS: Hepatitis C IgG 13Yrs+Old_Rflx Neg (Neg)
[2021-06-28] MEDS: cefTRIAXone SODIUM 2,000 MG in DEXTROSE 5% 50 ML IV SCH (14:26)
[2021-06-28] MEDS: POLYETHYLENE (MIRALAX) 17 GM PACK PO SCH (14:28)
--- NOTE | 2021-06-28 15:55 | Psychiatric Consultation ---
Date of Consultation June 28, 2021 Impression / Recommendations Impression 35-year-old male with alcohol abuse presenting in alcohol withdrawal. Psychiatry was consulted for services following hospitalization. Patient was informed as to the higher success rate of abstinence following inpatient rehab. At this time the patient is not interested in inpatient rehab, but is agreeable to take provided psychiatric resources and schedule outpatient appointments in counseling for alcohol abuse. (1) Alcohol withdrawal syndrome: Psychiatry Liaison provided patient with outpatient resources. No further psychiatric intervention at this time Psych History Identifying Data 35-year-old male who presented To the hospital for alcohol withdrawal. Psychiatry consult service was contacted for resources and possible rehab placement. Chief Complaint "I think I want to do things outpatient". History of Present Illness HPI as per psychiatric liaison "Rounded on patient, sitting up in bed. Pleasant and cooperative. Pt. reports that he had lived in the [facility] [place] for 3 years prior to moving to [place] a year ago. He describes himself as always being a social drinker with no abuse issues until the pandemic. Lives alone and had felt isolated with difficulty getting to know people when living in [place]. He feels that his move to [place] was a "good" thing, working at [employer], until and his alcohol use has increased. Denies history of anxiety and depression, states he is only anxious after drinking. He states he may be interested in D&A outpatient services, and would like some time to think about this. It was explained to him that our service can assist him if interested. Rounded on pt. Staff gave pt a drug and alcohol resource book and a recovery booklet from our floor. The pt was very receptive about the information I had to give him. The pt is still unsure of everything that he wants to do after discharge with rehab. The pt stated that he wants to stop drinking and get to the root of the problem of why he has been abusing alcohol like he has been. He stated that his father and his father's partner want him to go into inpatient rehab. He stated that his father and his father's partner have been his rock through all of this and they are very supportive. The pt does not want to go into inpatient rehab at this time due to taking that much time off from his job. He stated that he really does want to look into therapy and outpatient rehab. Staff and pt discussed about AA meetings and the pt stated that he is will to try whatever to get his life back in order. He stated that he does not want to make to many decision till he knows everything that is going on with his health. The pt stated that he would be willing to take psych meds if that is the root of his issues. The pt was very polite and pleasant during the whole interaction. The pt stated at this time he is still unsure if he needs our services. He stated that he would like to keep the option open for our help. Staff told him of course and to let us know if he needs anything." Upon evaluation this afternoon, patient endorsed the above information is accurate. He stated that he does drink to excess, and he knows that it is become problematic. He denies any acute suicidal or homicidal ideation or any psychotic or manic symptoms. Home Medications Medication Instructions Recorded Confirmed Type No Known Home Medications 06/27/21 06/27/21 History Personal History Beliefs That Will Affect Care: None Patient History Medical History No significant medical problems Surgical History No significant past surgical history Family History Other Family history non-contributory Social History Smoking Status: Current every day smoker Second Hand Exposure: No; Do You Dip or Chew Tobacco: No; Tobacco Cessation Education Requested by Patient: No Hx Alcohol Use: Yes Alcohol type: beer and hard liquor Alcohol Intake Frequency Comment: 10-13 drinks/day for the past 2 weeks. 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 Beliefs That Will Affect Care: None Current Living Situation: Alone How many Children do You have: 0 Other Information That Helps Us Care for You: No Feels Safe at Home: Yes Assistive Devices: None Physical Exam Psychiatric: Orientation: alert and oriented x 3 Apperance: appropriately dressed Eye Contact: good eye contact Motor Behavior: no abnormal motor movements Speech: normal rate/rhythm/volume of speech Affect: euthymic affect Mood: + anxious mood Thought Process: goal directed thought process and linear/logical thought process Thought Content: reality based without delusions Suicidal Thoughts: denies suicidal thoughts Homicidal Thoughts: denies homicidal thoughts Hallucinations: no auditory hallucinations and no visual hallucinations Cognition: recent memory grossly intact Estimated Intelligence: average estimated intelligence Insight: + fair insight Judgement: + fair judgement Vital Signs (Past 24 Hours): Last Vital Signs Temp 37.0 C 06/28/21 12:00 Pulse 73 06/28/21 15:46 Resp 18 06/28/21 12:00 BP 126/82 06/28/21 12:00 Pulse Ox 99 06/28/21 12:00 Review of Systems All systems reviewed & are unremarkable except as noted in HPI & below Results & Data ([facility]) Medications Administered Folic Acid (Folic Acid 1 Mg Tab) 1 mg PO QAM FREDI Stop: 07/27/21 13:59 Last Admin: 06/28/21 08:37 Dose: 1 mg Documented by: [id number] Admin: 06/27/21 14:34 Dose: 1 mg Documented by: [id number] Gabapentin (Gabapentin 600 Mg Tab) 600 mg PO Q8H FREDI Stop: 06/29/21 02:01 Last Admin: 06/28/21 10:11 Dose: 600 mg Documented by: [id number] Sodium Chloride (Nss 1000ml) 1,000 mls @ 80 mls/hr IV .[id number] FREDI Stop: 07/27/21 13:20 Last Admin: 06/28/21 12:33 Dose: 125 mls/hr Documented by: [id number] Infusion: 06/28/21 12:33 Dose: 125 mls/hr Documented by: [id number] Admin: 06/28/21 04:45 Dose: 125 mls/hr Documented by: [id number] Infusion: 06/28/21 04:44 Dose: 0 mls/hr Documented by: [id number] Admin: 06/27/21 20:50 Dose: 125 mls/hr Documented by: [id number] Infusion: 06/27/21 20:50 Dose: 125 mls/hr Documented by: [id number] Admin: 06/27/21 14:33 Dose: 125 mls/hr Documented by: [id number] Ceftriaxone Sodium 2,000 mg/ (Dextrose) 70 mls @ 140 mls/hr IV Q24H FREDI Stop: 07/08/21 13:59 Last Infusion: 06/28/21 15:29 Dose: 0 mls/hr Documented by: [id number] Admin: 06/28/21 14:26 Dose: 140 mls/hr Documented by: [id number] Polyethylene Glycol (Polyethylene (Miralax) 17 Gm Pack) 17 gm PO DAILY FREDI Stop: 07/28/21 13:44 Last Admin: 06/28/21 14:28 Dose: 17 gm Documented by: [id number] Thiamine HCl (Thiamine Hcl 100 Mg Tab) 100 mg PO QAM FREDI Stop: 07/27/21 13:59 Last Admin: 06/28/21 08:37 Dose: 100 mg Documented by: [id number] Admin: 06/27/21 14:34 Dose: 100 mg Documented by: [id number] Coding Level of Care Code 13801 [facility] Intl Hosp Care Lvl 2 Diagnoses Alcohol withdrawal syndrome F10.239 Time Spent (min) 40
[2021-06-29] MEDS: GABAPENTIN 600 MG TAB PO SCH ×2 (01:20→13:47)
[2021-06-29] MEDS: SODIUM CHLORIDE 0.9% 1000ML 1,000 ML IV SCH (05:25)
[2021-06-29 05:52] LABS: Hematocrit (blood only) 33.1 % (42-52); Hemoglobin 10.9 g/dL (14.0-18.0); Mean Corpuscular Hemoglobin 30.9 pg (25-34); Mean Corpuscular Hgb Conc 32.9 g/dL (32-36); Mean Corpuscular Volume 93.8 fL (80-100); Mean Platelet Volume 9.7 fL (7.4-10.4); Platelet Count 143 K/uL (130-400); RDW Coefficient of Variation 12.5 % (11.5-14.5); RDW Standard Deviation 42.3 fL (36.4-46.3); Red Blood Count 3.53 M/uL (4.7-6.1); White Blood Count 3.98 K/uL (4.8-10.8)
[2021-06-29 06:04] LABS: Prothrombin Time 10.2 Seconds (9.0-12.0)
[2021-06-29 06:31] LABS: Albumin Level 3.4 gm/dl (3.4-5.0); BUN Creatinine Ratio 7.3 (10-20); Calcium 8.7 mg/dl (8.5-10.1); Creatinine Clr Calc Pharmacy 151.8 ml/min; Est GFR (African American) 136.5 ml/min; Est GFR (Non-African American) 117.8 ml/min; Magnesium 2.2 mg/dl (1.8-2.4); Potassium 3.8 mmol/L (3.5-5.1)
[2021-06-29 06:39] LABS: Albumin Globulin Ratio 1.1 (0.9-2); Bilirubin,Total 0.7 mg/dl (0.2-1); Globulin 3.2 gm/dl (2.5-4.0); Phosphorus 4.7 mg/dl (2.5-4.9); Total Protein 6.6 gm/dl (6.4-8.2)
[2021-06-29] MEDS: FOLIC ACID 1 MG TAB PO SCH (09:08)
[2021-06-29] MEDS: THIAMINE HCL 100 MG TAB PO SCH (09:08)
[2021-06-29] MEDS: POLYETHYLENE (MIRALAX) 17 GM PACK PO SCH (09:08)
[2021-06-29] MEDS: cefTRIAXone SODIUM 2,000 MG in DEXTROSE 5% 50 ML IV SCH (13:50)
--- NOTE | 2021-06-29 14:20 | Hospitalist Progress Note ---
Date of Service June 29, 2021 Assessment & Plan (1) Alcohol withdrawal syndrome: Plan: -patient presenting from home with concerns for alcohol withdrawal. History of alcohol abuse with binges for the past 3-4 years. Has been drinking 10-13 drinks/day for the past two weeks. -alcohol withdrawal protocol with gabapentin, PRN Ativan -IVF, thiamine, folic acid -Appreciate psychiatry input. Patient refused rehab. (2) Elevated LFTs: Plan: -AST 249, ALT 272 on admission -likely due to alcohol use -liver US - Gallbladder sludge noted on ultrasound, temperature slightly elevated at 37.6 C, LFTs elevated however in the setting of alcohol abuse. Placed on zosyn and discussed w/ GI- per GI Tbili up very slightly today; may reflect intrahepatic cholestasis. Given pt's normal ALP and CBD of 3 mm, this is not consistent with biliary obstruction/CBD stone/sludge. Would defer MRI/MRCP. Would trend daily LFTs. -Hepatitis panel negative thus far. PAULINE, antimitochondrial antibody, anti-jake h muscle antibody, alpha-1 antitrypsin and ceruloplasmin is pending. INR is normal. AST at 310 today from 260 and ALT at 356 from 265. Trend daily LFTs. (3) Abnormal urinalysis: Plan: -UA suggests possible UTI -s/p IV ceftriaxone in the ED -continue IV ceftriaxone pending culture results -does not appear septic (4) DVT prophylaxis: Plan: -SCDs Admission and Anticipated Discharge Date Admission Date: June 27, 2021 Subjective Patient is awake and alert. Review of system is negative. Denies any nausea or vomiting. Have been tolerating diet. Review of Systems Review of Systems: All systems reviewed & are unremarkable except as noted in HPI & below Physical Exam Physical Exam: General: A&Ox3 HENT: NCAT, MMM, EOMI Eyes: PERRLA Neck: Supple, normal range of motion CVS: normal rate and rhythm Resp: b/l clear breath sounds Abdomen: Soft, ND/NT, +BS Extremities: No c/c/e Neuro: face symmetric, strength grossly equal, no focal deficit Skin: warm and dry, no rashes/lesions/errythema MSK: normal ROM, no joint swelling/erythema Results & Data Results & Data ([facility]) Vital Signs (Past 12 Hours) Vital Signs Temp Pulse Pulse Pulse Resp BP Pulse Ox 09/22/21 10:49 36.8 C 66 17 111/72 100 06/29/21 10:35 60 06/29/21 07:09 36.6 C 71 19 111/73 100 06/29/21 04:00 36.8 C 64 16 121/83 100
[2021-06-29 14:46] LABS: Alpha 1 Antitrypsin 146 mg/dL (83-199); Anti Mitochondrial Antibody NEGATIVE (NEGATIVE); Anti Nuclear Antibody Screen NEGATIVE (NEGATIVE); Ceruloplasmin 24 mg/dL (18-36); Hepatitis A Antibody IgM NON-REACTIVE (NON-REACTIVE); Hepatitis B Core Antibody IgM NON-REACTIVE (NON-REACTIVE); Smooth Muscle Antibody NEGATIVE (NEGATIVE)
[2021-06-29 19:05] VITALS: O2SAT 100
[2021-06-30] MEDS: GABAPENTIN 600 MG TAB PO SCH (01:18)
[2021-06-30 07:23] LABS: Albumin Level 3.4 gm/dl (3.4-5.0); Creatinine Clr Calc Pharmacy 142.4 ml/min; Est GFR (African American) 133.1 ml/min; Est GFR (Non-African American) 114.8 ml/min; Potassium 4.2 mmol/L (3.5-5.1)
[2021-06-30 07:26] LABS: Albumin Globulin Ratio 1.1 (0.9-2); Bilirubin,Total 0.7 mg/dl (0.2-1); Globulin 3.2 gm/dl (2.5-4.0); Total Protein 6.6 gm/dl (6.4-8.2)
[2021-06-30] MEDS: THIAMINE HCL 100 MG TAB PO SCH (08:21)
[2021-06-30] MEDS: POLYETHYLENE (MIRALAX) 17 GM PACK PO SCH (08:21)
[2021-06-30] MEDS: FOLIC ACID 1 MG TAB PO SCH (08:21)
[2021-06-30 08:58] LABS: Prothrombin Time 10.2 Seconds (9.0-12.0)
--- NOTE | 2021-06-30 11:40 | Ultrasound Report ---
US duplex portal hepatic veins CLINICAL INDICATION: MN ^elevated lfts. TECHNIQUE: Grayscale, color and spectral waveform Doppler examination of the abdomen was performed. Comparison: None available at the time of this dictation. FINDINGS: The hepatic veins, portal veins, IVC and splenic vein are patent with no thrombus identified. Flow is in the correct direction. Peak systolic velocity in the hepatic artery measures 109 cm/sec. Peak sys tolic velocity in the main portal vein measures 23 cm/sec. No ascites is seen. The splenic vein in t he midline and hilum is patent with flow in the appropriate direction. IMPRESSION: No portal vein thrombosis. No acute vascular abnormality. ACT 112: Negative or not required by law. Electronically signed by: Ho Farias M.D. 06/30/2021 11:38 AM
--- NOTE | 2021-06-30 11:45 | Discharge Summary ---
Date of Service June 30, 2021 Admission HPI Per Admitting Provider 35 year old male without significant PMH or PSH aside from alcohol abuse who presents to the ED for evaluation of alcohol withdrawal. Patient reports drinking 10-13 drinks/day for the past 2 weeks. Patient reports a history of alcohol abuse for the past 3-4 years. Patient reports he initially only would drink on the weekends however it progressed to drinking several nights/week and going on week long binges. Prior to two weeks ago, patient had been sober for 42 days. He also has been active with [facility] in the past as well. Patient reports last drink was last night around 10pm. At 0200, patient developed nausea, tremors, and anxiety. He was fearful of having an alcohol withdrawal seizure. He does not have a history of alcohol withdrawal seizures. He called EMS and was brought to the ED for further evaluation. Patient reports some vomiting over the past couple of weeks. Denies hematemesis and coffee ground emesis. Diarrhea at times too however denies BRBPR and dark tarry stools. Some intermittent abdominal pain when vomiting. Denies fever and chills. No chest pain and shortness of breath. Denies lightheadedness, dizziness, diaphoresis, and syncopal events. No urinary symptoms. In the ED, labs show K+ 3.4, AST 249, ALT 272. UA suggestive of possible UTI. Patient received IV ceftriaxone, IV lorazepam, banana bag, IV najma, and IVF. Admission Exam Per Admitting Provider Constitutional: WD/WN, vitals as above Eyes: PERRL, conjunctivae normal, anicteric sclerae ENMT: external ear and nose normal, oropharynx normal Respiratory: normal respiratory effort, lungs clear to auscultation Cardiovascular: Rate/Rhythm: regular rate and regular rhythm Vessels: normal peripheral pulses Extremities: no edema Gastrointestinal (Abdomen): normal bowel sounds, soft, nontender, no hepatosplenomegaly Musculoskeletal: no cyanosis or clubbing, extremities motor strength 5/5 Skin: no rashes, warm and dry Neurologic: PERRL, EOMI, accommodation nl, no face palsy, no dysarthria Psychiatric: A+Ox3, euthymic affect Principal Diagnosis Alcohol intoxication Elevated LFTs Discharge Exam General: A&Ox3 HENT: NCAT, MMM, EOMI Eyes: PERRLA Neck: Supple, normal range of motion CVS: normal rate and rhythm Resp: b/l clear breath sounds Abdomen: Soft, ND/NT, +BS Extremities: No c/c/e Neuro: face symmetric, strength grossly equal, no focal deficit Skin: warm and dry, no rashes/lesions/errythema MSK: normal ROM, no joint swelling/erythema Discharge Data Consultations 06/27/21 11:47 ED Decision to Admit Stat 06/27/21 13:21 Consult Psychiatry Routine 06/28/21 08:00 Consult Gastroenterology Routine Ordered Studies 06/27/21 13:21 US liver Routine 06/30/21 08:54 US duplex portal hepatic veins Routine Hospital Course (1) Alcohol withdrawal syndrome: -patient presented from home with concerns for alcohol withdrawal. History of alcohol abuse with binges for the past 3-4 years. Has been drinking 10-13 drinks/day for the past two weeks. Patient was treated with the [facility] protocol. On the day of discharge patient was awake, alert and oriented. No complaints. Patient refused rehab. On the day of discharge patient was awake, alert and oriented. Hemodynamically doing fine. No active complaints at the time of discharge patient was discharged in stable condition. (2) Elevated LFTs: -AST 249, ALT 272 on admission -likely due to alcohol use -liver US - Gallbladder sludge noted on ultrasound, temperature slightly elevated at 37.6 C, LFTs elevated however in the setting of alcohol abuse. Placed on zosyn and discussed w/ GI- per GI Tbili up very slightly today; may reflect intrahepatic cholestasis. Given pt's normal ALP and CBD of 3 mm, this is not consistent with biliary obstruction/CBD stone/sludge. Would defer MRI/ MRCP. Would trend daily LFTs. -Hepatitis panel negative thus far. PAULINE, antimitochondrial antibody, anti- smooth muscle antibody, alpha-1 antitrypsin and ceruloplasmin is pending. INR is normal. AST at 428 today from 260 and ALT at 516 from 265. Doppler ultrasound was done which was negative for any concerning findings. Patient was recommended to follow-up as an outpatient repeat LFTs. (3) Abnormal urinalysis: Cultures were positive. Patient was reviewed ceftriaxone. However patient denies any urinary symptoms. Total Time Total Time Spent Total Time Spent (In Minutes): 35 Discharge Plan Discharge Items Patient Disposition: Home - Self-Care Reason For Visit: ETOH WITHDRAWAL Discharge Diagnosis: Alcohol intixation Activity: Resume your previous activity Non-emergency contact: Primary Care Provider Call non-emergency contact if: your symptoms worsen Follow-up/Referrals: PCP,NO [Primary Care Provider] - Diet: Regular Addtl Attending Provider Instructions: Follow-up with your primary care physician within 1 week. Pending Studies at Discharge: No Stand-Alone Forms: My [employer], Smoking Cessation Medications and DC Order Prescriptions: New thiamine HCl (vitamin B1) [Vitamin B-1] 100 mg Tablet 100 mg PO QAM 14 Days Qty: 14 RF: 0 folic acid 1 mg Tablet 1 mg PO QAM Qty: 14 RF: 0 No Action No Known Home Medications RF: 0 Discharge Orders: Discharge Order (Routine); Ordered 06/30/21 Ordered By: Niko Arndt Admission Data Admit Date/Time: 06/27/21 11:43 Attending Provider: Niko Arndt Admit Provider: Tripp Barrow Primary Care Provider: PCP,NO Other Providers: Tripp Barrow ; Sirisha Lou Angela C. ; Stevie Ley ; Stanley Mcdonald
[2021-06-30 12:04] VITALS: BP 118/74; TEMP 98.4
--- NOTE | 2021-06-30 12:39 | Gastroenterology Progress Note ---
Date of Service June 30, 2021 Assessment & Plan (1) Elevated LFTs: Plan: Portal Duplex: The hepatic veins, portal veins, IVC and splenic vein are patent with no thrombus identified. Flow is in the correct direction. Peak systolic velocity in the hepatic artery measures 109 cm/sec. Peak systolic velocity in the main portal vein measures 23 cm/sec. No ascites is seen. The splenic vein in the midline and hilum is patent with flow in the appropriate direction. IMPRESSION: No portal vein thrombosis. No acute vascular abnormality. Plan: This is 35-year-old male with history of heavy alcohol use, admitted with symptoms of alcohol withdrawal. Last drink was over the weekend. GI consulted for elevated LFTs. Unclear if these are acute or chronic, however, likely associated with alcohol use. On exam, he is well-appearing, abdomen soft and nontender; not encephalopathic. Slight trend up in transaminases today but overall other labs are stable. - Work-up so far with negative serologies, neg acute hep panel - PT/INR, albumin are normal; pt has no encephalopathy; no overt liver failure - Maddrey's = -8.2, indicating pt would not benefit from steroids - Portal duplex today = unremarkable - Pt would like to go home. As he appears overall stable, no GI contraindications to discharge - Pt needs OP f/u - needs to establish with PCP to trend LFTs in the next few days - Pt would benefit from ETOH rehab - Would avoid hepatotoxins, including Tylenol - Recommend strict ETOH avoidance - GI will sign off, please call with questions Thank you for allowing us to participate in the care of this patient. Please call with any acute changes, questions or concerns. Please see addendum below with additional recommendation from my supervising physician. - Admission and Anticipated Discharge Date Admission Date: June 27, 2021 Supervising Physician Co-Signing Physician Notes I have personally seen and examined the patient with Jayde Sanon PA-C. Her note reflects my exam and findings. I agree with her impression and plan. I am concerned his liver enzyme rise is related to something we are doing to him here. I recommend stopping his antibiotics if not already done and stopping his Ativan. Stanley Mcdonald M.D. Subjective Patient seen and examined, chart reviewed. Patient feels well, no complaints at present. He states he would like to go home. He is tolerating regular food. No nausea vomiting or abdominal pain, hematemesis melena or hematochezia, fevers or chills, confusion, leg swelling. Bowel movements are brown and formed. Review of Systems Review of Systems: A complete review of systems was performed and negative except as noted in HPI Physical Exam Constitutional: WD/WN, vitals as above Respiratory: normal respiratory effort, lungs clear to auscultation Cardiovascular: RRR, no murmur, no edema Gastrointestinal (Abdomen): normal bowel sounds, soft, nontender, no hepatosplenomegaly Skin: no rashes, warm and dry no jaundice Psychiatric: A+Ox3, euthymic affect Results & Data ([facility]) Vital Signs (Past 12 Hours) Vital Signs Temp Pulse Pulse Resp BP Pulse Ox 06/30/21 12:02 36.9 C 78 17 118/74 100 06/30/21 09:48 51 L 06/30/21 08:18 37.1 C 86 17 110/70 100 06/30/21 03:15 36.7 C 67 16 113/75 100 Laboratory Results 06/30/21 06/30/21 06/28/21 Range/Units 08:38 06:13 12:04 PT 10.2 (9.0-12.0) Seconds INR 1.0 (0.9-1.1) Sodium 134 L (136-145) mmol/L Potassium 4.2 (3.5-5.1) mmol/L Chloride 106 (98-107) mmol/L Carbon Dioxide 26 (21-32) mmol/L Anion Gap 2.0 L (3-11) BUN 7 (7-18) mg/dl Creatinine 0.83 (0.6-1.4) mg/dl Est Cr Clr Drug Dosing 142.4 ml/min Est GFR ( Amer) 133.1 ml/min Est GFR (Non-Af Amer) 114.8 ml/min BUN/Creatinine Ratio 8.0 L (10-20) Glucose 82 (70-99) mg/dl Calcium 9.0 (8.5-10.1) mg/dl Total Bilirubin 0.7 (0.2-1) mg/dl AST 428 H (15-37) U/L ALT 516 H (12-78) U/L Alkaline Phosphatase 59 (45-117) U/L Total Protein 6.6 (6.4-8.2) gm/dl Albumin 3.4 (3.4-5.0) gm/dl Globulin 3.2 (2.5-4.0) gm/dl Albumin/Globulin Ratio 1.1 (0.9-2) Larcd-0-Hjjsaqavetq 146 (83-199) mg/dL Ceruloplasmin 24 (18-36) mg/dL PAULINE Screen NEGATIVE (NEGATIVE) Anti-Mitochondrial Ab NEGATIVE (NEGATIVE) Anti-Smooth Muscle Ab NEGATIVE (NEGATIVE) Hepatitis A IgM Ab NON-REACTIVE (NON-REACTIVE) Hep B Core IgM Ab NON-REACTIVE (NON-REACTIVE)
[2021-06-30 13:17] VITALS: PULSE 84
[2021-07-01] MEDS ORDERED: GABAPENTIN 600 MG TAB PO SCH (02:00)
== END 2021-06-30 13:49 | disposition home or self-care (01) | DRG 897 ==
LOC: ED 07:20 → 2S 11:43 → SUATTDRO 11:43 → 2S 12:40

== ENCOUNTER 2021-09-22 16:09 | Inpatient (IN) ==
[2021-09-22] MEDS ORDERED: SODIUM CHLORIDE 0.9% 1000ML 1,000 ML IV ONE (16:58)
[2021-09-22] MEDS ORDERED: KETOROLAC TROMETHAMINE 15 MG/ML VIAL IV STA (16:58)
[2021-09-22 16:59] LABS: Basophils # (auto) 0.02 K/uL (0-0.2); Basophils % (auto) 0.1 %; Eosinophils # (auto) 0.01 K/uL (0-0.5); Eosinophils % (auto) 0.1 %; Hemoglobin 12.4 g/dL (14.0-18.0); Immature Granulocytes # (auto) 0.04 K/uL (0.00-0.02); Immature Granulocytes % (auto) 0.3 %; Lymphocytes % (auto) 5.8 %; Mean Corpuscular Hemoglobin 31.2 pg (25-34); Mean Corpuscular Hgb Conc 33.5 g/dL (32-36); Mean Corpuscular Volume 93.2 fL (80-100); Mean Platelet Volume 10.2 fL (7.4-10.4); Neutrophils # (auto) 11.84 K/uL (1.4-6.5); Neutrophils % (auto) 85.7 %; Platelet Count 177 K/uL (130-400); RDW Coefficient of Variation 13.5 % (11.5-14.5); RDW Standard Deviation 46.5 fL (36.4-46.3); Red Blood Count 3.97 M/uL (4.7-6.1); White Blood Count 13.81 K/uL (4.8-10.8)
[2021-09-22 17:16] LABS: Albumin Level 3.9 gm/dl (3.4-5.0); BUN Creatinine Ratio 8.7 (10-20); Calcium 9.6 mg/dl (8.5-10.1); Creatinine Clr Calc Pharmacy 134.8 ml/min; Est GFR (African American) 129.9 ml/min; Est GFR (Non-African American) 112.1 ml/min; Potassium 4.2 mmol/L (3.5-5.1)
[2021-09-22 17:19] LABS: Bilirubin,Total 1.7 mg/dl (0.2-1); Globulin 3.9 gm/dl (2.5-4.0); Total Protein 7.8 gm/dl (6.4-8.2)
[2021-09-22] MEDS ORDERED: OPTIRAY 320 100ml IV ONE (18:00)
--- NOTE | 2021-09-22 18:14 | Emergency Department Note ---
History of Present Illness General Chief Complaint: Abdominal Pain Stated Complaint: severe abdominal pain 3days Time Seen by Provider: 09/22/21 16:47 History of Present Illness Provider Complaint: abdominal pain Onset (ago): 2 day(s) Pain Consistency: intermittent Location: RLQ Severity: moderate Maximum Pain Intensity: 8 Current Pain Intensity: 8 Quality: + stabbing, + aching and + sharp Relieved By: + nothing Exacerbated By: + nothing Context: no foreign travel, no possible food poisoning, no sick contacts, no recent antibiotic use, no recent surgery/procedure or no recent injury Associated Symptoms: + nausea; no vomiting, no diarrhea, no fever, no chills, no constipation, no dysuria, no hematemesis, no hematochezia, no melena, no hematuria, no anorexia, no syncope, no headache, no neck pain, no back pain, no chest pain, no weakness, no breathing difficulty and no numbness Home Medications Medication Instructions Recorded Confirmed Type No Known Home Medications 09/22/21 09/22/21 History Allergies Allergy/AdvReac Type Severity Reaction Status Date / Time No Known Allergies Allergy Unverified 09/22/21 17:50 Past Med/Surg History Medical History No significant medical problems Surgical History No significant past surgical history Family History Other Family history non-contributory Social History Smoking Status: Never smoker Second Hand Exposure: No; Hx Alcohol Use: Yes Alcohol type: beer and hard liquor Alcohol Intake Frequency Comment: 10-13 drinks/day for the past 2 weeks. History of alochol abuse with binges Hx Substance Use: No Preferred Language: Welsh Communication Ability: Effective Tractor Operator Required: No Beliefs That Will Affect Care: None Current Living Situation: Alone How many Children do You have: 0 Feels Safe at Home: Yes Assistive Devices: None Review of Systems A total of 10 systems reviewed and were otherwise negative Physical Exam Vital Signs: Vital Signs - 24 hr 09/22/21 16:13 09/22/21 17:17 09/22/21 18:44 Temperature 37.0 C Temperature Source Temporal Artery Sc an Pulse Rate 109 H Pulse Rate [Right Finger] 97 H 91 H Respiratory Rate 18 18 16 Respiratory Effort / Characteristics Non-Labored Respiratory Depth Normal Blood Pressure 117/75 Blood Pressure [Ri ght Arm] 134/84 135/77 Blood Pressure Paulina n 89 Blood Pressure Paulina n [Right Arm] 100 96 Pulse Oximetry 98 100 100 Oxygen Delivery Me thod Room Air Room Air Room Air Sepsis Recent Feve r Within 48 Hours No Sepsis New/Unexpla ined Change in Men renetta Status No Sepsis Action Take n by Nursing No Action Required Physical Exam: Physical Exam GENERAL: He is oriented to person, place, and time. He appears well-developed and well-nourished. He does not appear distressed. HENT: Exam performed. - Head: Normocephalic and atraumatic. - Right Ear: External ear normal. No mastoid tenderness. - Left Ear: External ear normal. No mastoid tenderness. - Mouth/Throat: The oropharynx is clear and moist. No trismus in the jaw. No dental abscesses or uvula swelling. No oropharyngeal exudate or tonsillar abscesses. EYES: Conjunctivae and EOM are normal. Pupils are equal, round, and reactive to light. Right eye exhibits no discharge. Left eye exhibits no discharge. No scleral icterus. NECK: Normal range of motion. Neck supple. No JVD present. No spinous process tenderness present. No carotid bruit present. No rigidity. No tracheal deviation and normal range of motion present. No Brudzinski's sign and no Kernig's sign noted. CV: Normal rate, regular rhythm, normal heart sounds and intact distal pulses. There is no peripheral edema. Palpable radial pulses bue. PULM/CHEST: Effort normal and breath sounds normal. No respiratory distress. No stridor. He has no wheezes. He has no rales. - Chest Wall: He exhibits no tenderness. ABD: The abdomen is soft. Bowel sounds are normal. He has no distension. No mass is present. There is tenderness to palpation of the right lower quadrant There is no rebound, no guarding, no Gordon's sign. Rovsig positive. MUSC/SKEL: Normal range of motion. There is no peripheral edema, tenderness or deformity. LYMPH: No cervical adenopathy. NEURO: He is alert and oriented to person, place, and time. He has normal strength. No cranial nerve deficit or sensory deficit. Coordination and gait normal. GCS eye subscore is 4. GCS verbal subscore is 5. GCS motor subscore is 6. Cerebellar tests wnl. SKIN: Skin is warm and dry. He is not diaphoretic. PSYCH: He has a normal mood and affect. Behavior is normal. Judgment and thought content normal. Course Course 164: The patient was evaluated in room C4. A complete history and physical exam was performed Cardiac monitoring: An order was placed for continuous cardiac monitoring. The monitor shows a rate of 90 with sinus rhythm 1851: Vital signs stable. Labs show mild leukocytosis. CT does show appendicitis with 1.5 cm appendicolith as well as a 1.9 x 4.2 cm abscess abutting the adjacent cecum terminal ileum and appendix. Discussed case with general surgery Dr. Bishop who states he will reviewed the CT scan and come down to evaluate the patient. Zosyn ordered for the patient Dr. Bishop agrees with the Zosyn. 1910: Dr. Bishop at bedside. He states he will admit the patient to his service. Administered Medications Discontinued Medications Sodium Chloride (Nss 1000ml) 1,000 mls @ 999 mls/hr IV .Q1H1M ONE Stop: 09/22/21 17:58 Last Infusion: 09/22/21 19:04 Dose: 0 mls/hr Documented by: [id number] Admin: 09/22/21 17:12 Dose: 999 mls/hr Documented by: [id number] Piperacillin Sod/Tazobactam Sod (Zosyn) 4.5 gm in 120 mls @ 240 mls/hr IV NOW ONE Stop: 09/22/21 19:09 Last Admin: 09/22/21 19:06 Dose: 240 mls/hr Documented by: [id number] Ioversol (Optiray 320 100ml) 94 ml IV ONCE ONE Stop: 09/22/21 18:01 Last Admin: 09/22/21 18:00 Dose: 94 ml Documented by: [id number] Ketorolac Tromethamine (Ketorolac Tromethamine 15 Mg/Ml Vial) 15 mg IV NOW STA Stop: 09/22/21 16:59 Last Admin: 09/22/21 17:12 Dose: 15 mg Documented by: [id number] Medical Decision Making Laboratory Data Result diagrams: 09/22/21 16:49 09/22/21 16:49 Lab Results 09/22/21 09/22/21 Range/Units 16:49 16:49 WBC 13.81 H (4.8-10.8) K/uL RBC 3.97 L (4.7-6.1) M/uL Hgb 12.4 L (14.0-18.0) g/dL Hct 37.0 L (42-52) % MCV 93.2 (80-100) fL MCH 31.2 (25-34) pg MCHC 33.5 (32-36) g/dL RDW Std Deviation 46.5 H (36.4-46.3) fL RDW Coeff of Courtney 13.5 (11.5-14.5) % Plt Count 177 (130-400) K/uL MPV 10.2 (7.4-10.4) fL Immature Gran % (Auto) 0.3 % Neut % (Auto) 85.7 % Lymph % (Auto) 5.8 % Gonzales % (Auto) 8.0 % Eos % (Auto) 0.1 % Baso % (Auto) 0.1 % Neut # (Auto) 11.84 H (1.4-6.5) K/uL Lymph # (Auto) 0.80 L (1.2-3.4) K/uL Gonzales # (Auto) 1.10 H (0.11-0.59) K/uL Eos # (Auto) 0.01 (0-0.5) K/uL Baso # (Auto) 0.02 (0-0.2) K/uL Immature Gran # (Auto) 0.04 H (0.00-0.02) K/uL Sodium 131 L (136-145) mmol/L Potassium 4.2 (3.5-5.1) mmol/L Chloride 99 (98-107) mmol/L Carbon Dioxide 26 (21-32) mmol/L Anion Gap 6.0 (3-11) BUN 8 (7-18) mg/dl Creatinine 0.88 (0.6-1.4) mg/dl Est Cr Clr Drug Dosing 134.8 ml/min Est GFR ( Amer) 129.9 ml/min Est GFR (Non-Af Amer) 112.1 ml/min BUN/Creatinine Ratio 8.7 L (10-20) Glucose 125 H (70-99) mg/dl Calcium 9.6 (8.5-10.1) mg/dl Total Bilirubin 1.7 H (0.2-1) mg/dl AST 125 H (15-37) U/L ALT 190 H (12-78) Alkaline Phosphatase 61 (45-117) U/L Total Protein 7.8 (6.4-8.2) gm/dl Albumin 3.9 (3.4-5.0) gm/dl Globulin 3.9 (2.5-4.0) gm/dl Albumin/Globulin Ratio 1.0 (0.9-2) Lipase 239 (73-393) U/L [facility] Narrative 1647: The patient was evaluated in room C4. A complete history and physical exam was performed Cardiac monitoring: An order was placed for continuous cardiac monitoring. The monitor shows a rate of 90 with sinus rhythm 1851: Vital signs stable. Labs show mild leukocytosis. CT does show appendicitis with 1.5 cm appendicolith as well as a 1.9 x 4.2 cm abscess abutting the adjacent cecum terminal ileum and appendix. Discussed case with general surgery Dr. Bishop who states he will reviewed the CT scan and come down to evaluate the patient. Zosyn ordered for the patient Dr. Bishop agrees with the Zosyn. 1910: Dr. Bishop at bedside. He states he will admit the patient to his service. Impression & Plan Acute appendicitis Discharge Plan Visit Data Chief Complaint: Abdominal Pain Stated Complaint: severe abdominal pain 3days ED Provider: Jad Paez Discharge Problem: Acute appendicitis Patient Disposition: Admitted As Inpatient Forms Stand Alone Forms: [employer] Prescriptions Prescriptions: No Action No Known Home Medications RF: 0 Referrals Referrals: PCP,NO [Primary Care Provider] - Discharge Problem: Acute appendicitis Qualifiers: Acute appendicitis type: with localized peritonitis Appendicitis gangrene presence: unspecified whether gangrene present Appendicitis perforation presence: unspecified whether perforation present Appendicitis abscess presence: with abscess Qualified Code(s): K35.33 - Acute appendicitis with perforation and localized peritonitis, with abscess
--- NOTE | 2021-09-22 18:37 | CT Scan Report ---
ABDOMEN AND PELVIS CT WITH IV CONTRAST CT DOSE: 341.53 mGy.cm HISTORY: Acute right lower quadrant abdominal pain rlq pain ro appy TECHNIQUE: Multiaxial CT images of the abdomen and pelvis were performed following the IV administrat ion of 94 cc of Optiray, A dose lowering technique was utilized adhering to the principles of ALARA. COMPARISON STUDY: Abdominal ultrasound 06/27/2021 FINDINGS: The imaged inferior cardiac chambers are unremarkable. Clear lung bases. The spleen, pancreas, mildly contracted gallbladder and adrenal glands are unremarkable. Hepatic steatosis. Patent portal vein. U nremarkable kidneys. No hydronephrosis. Partial distention of the urinary bladder with mild wall thic kening. The prostate is upper limits of normal in size. Aorta and IVC are unremarkable. No pathologic ally enlarged lymph nodes are identified. There is no bowel obstruction. Mild wall thickening of the inferior rectum and anorectal junction. 1. 5 cm appendicolith is noted within the base of the appendix. The appendix is dilated and inflamed trista suring up to 1.5 cm transversely with thickened wall and mucosal hyperemia. Periappendiceal inflammat ory stranding with periappendiceal free fluid. Peripherally enhancing fluid collection is noted adjac ent to the base of the cecum measuring 1.9 x 4.2 cm and abuts the terminal ileum which is decompresse d. No pneumoperitoneum. No acute fracture. IMPRESSION: 1. Acute appendicitis with 1.5 cm appendicolith. Additionally, there is a periappendiceal abscess trista suring 1.9 x 4.2 cm abutting the adjacent cecum, terminal ileum and appendix. 2. No bowel obstruction or pneumoperitoneum. 3. Hepatic steatosis. ACT 112: Negative or not required by law. The above report was generated using voice recognition software. It may contain grammatical, syntax o r spelling errors. Electronically signed by: Guido Silva M.D. 09/22/2021 6:36 PM
[2021-09-22] MEDS ORDERED: PIPERACILLIN/TAZOBACTAM 4.5 GM/120 ML BAG IV ONE (18:40)
--- NOTE | 2021-09-22 19:46 | History & Physical Report ---
Date of Service September 22, 2021 Assessment & Plan (1) Acute appendicitis: Plan: Patient with significant phlegmonous changes around the cecum and ileum and a small abscess This is a situation where IV antibiotics and medical treatment are probably warranted The concern is possible need for bowel resection and also wound complications Patient will be admitted to the hospital on IV antibiotics We will give him clear liquids tonight and possibly advance his diet tomorrow It may be that he needs a PICC line with IV antibiotics at home It does not appear the area of the abscess is large enough to warrant transfer for IR History of Present Illness Primary Care Provider: NO PCP 35-year-old male presenting the emergency room with right lower quadrant pain and found to have complicated appendicitis It appears he had symptoms approximately 3 to 4 days prior and began to worsen 2 days ago now presenting the emergency room Clinically appears stable His CT scan shows significant phlegmonous changes around the cecum and ileum with a ruptured appendix and periappendiceal abscess Allergies Allergy/AdvReac Type Severity Reaction Status Date / Time No Known Allergies Allergy Unverified 09/22/21 17:50 Home Medications Medication Instructions Recorded Confirmed Type No Known Home Medications 09/22/21 09/22/21 History Past Med/Surg History Medical History No significant medical problems Surgical History No significant past surgical history Family History Other Family history non-contributory Social History Smoking Status: Never smoker Second Hand Exposure: No; Hx Alcohol Use: Yes Alcohol type: beer and hard liquor Alcohol Intake Frequency Comment: 10-13 drinks/day for the past 2 weeks. History of alochol abuse with binges Hx Substance Use: No Preferred Language: Yakut Communication Ability: Effective Unbundler Required: No Beliefs That Will Affect Care: None Current Living Situation: Alone How many Children do You have: 0 Feels Safe at Home: Yes Assistive Devices: None Review of Systems Review of Systems: All systems reviewed & are unremarkable except as noted in HPI & below Physical Exam Physical Exam: Patient is awake and alert appears normal He is in no distress Constitutional: well developed; no acute distress Eyes: + anicteric sclerae Respiratory: normal respiratory effort; no respiratory distress Cardiovascular: Rate/Rhythm: regular rate Gastrointestinal (Abdomen): Percussion/Palpation: + abdomen tender Patient's abdomen is flat and soft with good bowel sounds He does have some mild tenderness to deep palpation in the right lower quadrant Musculoskeletal: Head/Neck/Chest: head atraumatic Skin: no rashes, warm and dry Neurologic: awake Psychiatric: Orientation: alert Results & Data Results & Data ([facility]) Vital Signs (Past 12 Hours) Vital Signs Temp Pulse Pulse Resp BP BP Pulse Ox 09/22/21 18:44 91 H 16 135/77 100 09/22/21 17:17 97 H 18 134/84 100 09/22/21 16:13 37.0 C 109 H 18 117/75 98 Laboratory Results I reviewed his laboratory results His white blood cell count is 13,000 Diagnostic Findings I reviewed his CAT scan please see assessment and plan PG Care Time/CCT Total # of Minutes Spent Total Time Spent with Patient: Total time spent is greater than 50% in coordination of care (as documented) at patient's floor/unit and/or counseling patient: Coding Level of Care Code 72717 Initial Inpt Care Lvl 3 Diagnoses Acute appendicitis K35.33 Acute appendicitis type: with localized peritonitis Appendicitis abscess presence: with abscess Appendicitis gangrene presence: unspecified whether gangrene present Appendicitis perforation presence: unspecified whether perforation present (1) Acute appendicitis Acute appendicitis type: with localized peritonitis Appendicitis abscess presence: with abscess Appendicitis gangrene presence: unspecified whether gangrene present Appendicitis perforation presence: unspecified whether perforation present Qualified Code(s): K35.33 - Acute appendicitis with perforation and localized peritonitis, with abscess
[2021-09-22] MEDS ORDERED: HYDROmorphone INJ 0.5 MG/0.5 ML SYR IV PRN (23:19)
[2021-09-22] MEDS ORDERED: PROMETHAZINE HCL 12.5 MG in SODIUM CHLORIDE 0.9% 50 ML IV PRN (23:19)
[2021-09-22] MEDS ORDERED: PROMETHAZINE HCL 25 MG in SODIUM CHLORIDE 0.9% 50 ML IV PRN (23:19)
[2021-09-22] MEDS ORDERED: HYDROmorphone INJ 1 MG/ML SYRINGE IV PRN (23:19)
[2021-09-22] MEDS ORDERED: ONDANSETRON INJ 2 MG/ML 2 ML VIAL IV PRN (23:19)
[2021-09-22] MEDS: NSS + 20MEQ KCL 20 MEQ/1,000 ML BAG IV SCH (23:46)
[2021-09-22] MEDS: HEPARIN SOD 5,000 UNIT/0.5 ML VIAL SQ SCH (23:46)
[2021-09-23] MEDS: ACETAMINOPHEN 325 MG TAB PO PRN ×2 (00:27→15:09)
[2021-09-23] MEDS ORDERED: IBUPROFEN 600 MG TAB PO PRN (06:26)
[2021-09-23 07:42] LABS: Basophils # (auto) 0.03 K/uL (0-0.2); Basophils % (auto) 0.2 %; Eosinophils # (auto) 0.06 K/uL (0-0.5); Eosinophils % (auto) 0.5 %; Hematocrit (blood only) 33.6 % (42-52); Hemoglobin 11.1 g/dL (14.0-18.0); Immature Granulocytes # (auto) 0.02 K/uL (0.00-0.02); Immature Granulocytes % (auto) 0.2 %; Lymphocytes # (auto) 1.83 K/uL (1.2-3.4); Lymphocytes % (auto) 15.2 %; Mean Corpuscular Hemoglobin 31.3 pg (25-34); Mean Corpuscular Volume 94.6 fL (80-100); Mean Platelet Volume 10.2 fL (7.4-10.4); Monocytes # (auto) 1.56 K/uL (0.11-0.59); Neutrophils # (auto) 8.51 K/uL (1.4-6.5); Neutrophils % (auto) 70.9 %; Platelet Count 153 K/uL (130-400); RDW Coefficient of Variation 13.8 % (11.5-14.5); RDW Standard Deviation 48.1 fL (36.4-46.3); Red Blood Count 3.55 M/uL (4.7-6.1); White Blood Count 12.01 K/uL (4.8-10.8)
--- NOTE | 2021-09-23 08:00 | Surgery Progress Note ---
Date of Service September 23, 2021 Assessment & Plan (1) Acute phlegmonous appendicitis: Plan: Plan is to continue with IV antibiotics Continue on clear liquids today and possibly advance diet tomorrow We will consider home IV antibiotics Patient may need a PICC line at some point We will likely rescan early next week Dr. Garcia is covering over the weekend Admission and Anticipated Discharge Date Admission Date: September 22, 2021 Subjective Patient is awake and alert in his bed looking at his laptop Clinically he looks very good and afebrile this morning Did have a fever last evening Minimal abdominal pain but some mild soreness on the right side Review of Systems Review of Systems: All systems reviewed & are unremarkable except as noted in HPI & below Physical Exam Physical Exam: Patient is awake and alert clinically looks very good in no distress Constitutional: well developed; no acute distress Eyes: + anicteric sclerae Respiratory: normal respiratory effort; no respiratory distress Cardiovascular: Rate/Rhythm: regular rate Gastrointestinal (Abdomen): Inspection/Auscultation: abdomen not distended Mild pain on the right side to palpation Flat and soft Musculoskeletal: Head/Neck/Chest: head atraumatic Skin: no rashes, warm and dry Neurologic: awake Psychiatric: Orientation: alert Results & Data ([facility]) Vital Signs (Past 12 Hours) Vital Signs Temp Pulse Pulse Resp BP Pulse Ox 09/23/21 07:10 37.3 C 85 20 105/64 100 09/23/21 03:15 36.6 C 76 18 108/72 99 09/23/21 00:25 38.6 C H 09/22/21 23:10 38.9 C H 102 H 18 109/71 100 09/22/21 22:00 84 16 122/78 99 09/22/21 20:00 88 16 131/91 97 PG Care Time/CCT Total # of Minutes Spent Total Time Spent with Patient: Total time spent is greater than 50% in coordination of care (as documented) at patient's floor/unit and/or counseling patient: Coding Level of Care Code 92643 Subseq Hosp Care Lvl 3 Diagnoses Acute phlegmonous appendicitis K35.890
[2021-09-23 08:03] LABS: Albumin Level 3.2 gm/dl (3.4-5.0); BUN Creatinine Ratio 8.5 (10-20); Calcium 8.9 mg/dl (8.5-10.1); Creatinine Clr Calc Pharmacy 147.6 ml/min; Est GFR (African American) 135.1 ml/min; Est GFR (Non-African American) 116.6 ml/min; Potassium 4.1 mmol/L (3.5-5.1)
[2021-09-23 08:05] LABS: Bilirubin,Total 1.8 mg/dl (0.2-1); Globulin 3.4 gm/dl (2.5-4.0); Phosphorus 3.7 mg/dl (2.5-4.9); Total Protein 6.6 gm/dl (6.4-8.2)
[2021-09-23] MEDS: HEPARIN SOD 5,000 UNIT/0.5 ML VIAL SQ SCH ×2 (08:23→21:44)
[2021-09-23] MEDS: NSS + 20MEQ KCL 20 MEQ/1,000 ML BAG IV SCH (12:14)
[2021-09-24] MEDS: NSS + 20MEQ KCL 20 MEQ/1,000 ML BAG IV SCH ×2 (00:47→12:48)
[2021-09-24 09:41] LABS: Basophils # (auto) 0.01 K/uL (0-0.2); Basophils % (auto) 0.1 %; Eosinophils # (auto) 0.08 K/uL (0-0.5); Hematocrit (blood only) 30.8 % (42-52); Hemoglobin 10.1 g/dL (14.0-18.0); Immature Granulocytes # (auto) 0.02 K/uL (0.00-0.02); Immature Granulocytes % (auto) 0.3 %; Lymphocytes # (auto) 1.11 K/uL (1.2-3.4); Lymphocytes % (auto) 13.9 %; Mean Corpuscular Hemoglobin 31.4 pg (25-34); Mean Corpuscular Hgb Conc 32.8 g/dL (32-36); Mean Corpuscular Volume 95.7 fL (80-100); Mean Platelet Volume 9.7 fL (7.4-10.4); Monocytes % (auto) 11.3 %; Neutrophils # (auto) 5.87 K/uL (1.4-6.5); Neutrophils % (auto) 73.4 %; Platelet Count 181 K/uL (130-400); RDW Coefficient of Variation 13.6 % (11.5-14.5); RDW Standard Deviation 47.9 fL (36.4-46.3); Red Blood Count 3.22 M/uL (4.7-6.1); White Blood Count 7.99 K/uL (4.8-10.8)
[2021-09-24] MEDS: HEPARIN SOD 5,000 UNIT/0.5 ML VIAL SQ SCH ×2 (09:42→20:40)
[2021-09-24 10:12] LABS: BUN Creatinine Ratio 4.3 (10-20); Calcium 8.8 mg/dl (8.5-10.1); Creatinine Clr Calc Pharmacy 145.8 ml/min; Est GFR (African American) 134.4 ml/min; Potassium 3.7 mmol/L (3.5-5.1)
[2021-09-24] MEDS ORDERED: PIPERACILL/TAZOBAC CONSULT ACTIVE PRN (11:21)
[2021-09-24] MEDS ORDERED: PIPERACILLIN/TAZOBACTAM 3.375 GM in DEXTROSE 5% 100 ML IV ONE (11:45)
--- NOTE | 2021-09-24 12:03 | Surgery Progress Note ---
Date of Service September 24, 2021 Assessment & Plan (1) Acute phlegmonous appendicitis: Plan: Patient clinically feeling much better; denies much pain WBC 7 (12). Tmax 38.1C at 11:30pm last night Abx must have fallen off, will resume IV zosyn Advance diet to full liquids Continue IV abx throughout wknd, may consider re-scanning early next week Admission and Anticipated Discharge Date Admission Date: September 22, 2021 Supervising Physician Co-Signing Physician Notes Patient seen and examined, agree with above. Being treated nonoperatively for phlegmonous appendicitis. Doing well, feels much better, tolerating diet. Abdomen soft, minimally tender, no guarding. WBC normal. Appears antibiotics may have been discontinued, will continue on IV Zosyn, advance diet as tolerated. Possible repeat imaging versus discharge early this week. Subjective Patient reports feeling much better. He is tolerating a clear liquid diet. Physical Exam Physical Exam: awake/alert Gastrointestinal (Abdomen): Percussion/Palpation: + abdomen tender (mild rlq) and abdomen soft Results & Data ([facility]) Vital Signs (Past 12 Hours) Vital Signs Temp Pulse Pulse Resp BP Pulse Ox 09/24/21 08:02 36.9 C 78 16 114/72 99 09/24/21 03:27 37.1 C 90 16 118/64 97 PG Care Time/CCT Total # of Minutes Spent Total Time Spent with Patient: Total time spent is greater than 50% in coordination of care (as documented) at patient's floor/unit and/or counseling patient: Coding Level of Care Code 81229 Subseq Hosp Care Lvl 1 Diagnoses Acute phlegmonous appendicitis K35.890
[2021-09-24] MEDS: PIPERACILLIN/TAZOBACTAM 3.375 GM in DEXTROSE 5% 100 ML IV SCH (17:44)
[2021-09-25] MEDS: PIPERACILLIN/TAZOBACTAM 3.375 GM in DEXTROSE 5% 100 ML IV SCH ×3 (01:19→17:34)
[2021-09-25] MEDS: NSS + 20MEQ KCL 20 MEQ/1,000 ML BAG IV SCH (01:19)
[2021-09-25 07:15] LABS: Basophils # (auto) 0.02 K/uL (0-0.2); Basophils % (auto) 0.3 %; Eosinophils # (auto) 0.13 K/uL (0-0.5); Eosinophils % (auto) 1.8 %; Hematocrit (blood only) 29.2 % (42-52); Hemoglobin 9.7 g/dL (14.0-18.0); Immature Granulocytes # (auto) 0.01 K/uL (0.00-0.02); Immature Granulocytes % (auto) 0.1 %; Lymphocytes # (auto) 1.45 K/uL (1.2-3.4); Mean Corpuscular Hemoglobin 31.3 pg (25-34); Mean Corpuscular Hgb Conc 33.2 g/dL (32-36); Mean Corpuscular Volume 94.2 fL (80-100); Mean Platelet Volume 9.5 fL (7.4-10.4); Monocytes # (auto) 1.28 K/uL (0.11-0.59); Monocytes % (auto) 17.7 %; Neutrophils # (auto) 4.36 K/uL (1.4-6.5); Neutrophils % (auto) 60.1 %; Platelet Count 219 K/uL (130-400); RDW Coefficient of Variation 13.6 % (11.5-14.5); RDW Standard Deviation 47.1 fL (36.4-46.3); White Blood Count 7.25 K/uL (4.8-10.8)
[2021-09-25 07:40] LABS: Creatinine Clr Calc Pharmacy 161.7 ml/min; Est GFR (African American) 140.3 ml/min; Potassium 3.9 mmol/L (3.5-5.1)
[2021-09-25] MEDS: HEPARIN SOD 5,000 UNIT/0.5 ML VIAL SQ SCH ×2 (10:02→20:42)
--- NOTE | 2021-09-25 11:37 | Surgery Progress Note ---
Date of Service September 25, 2021 Assessment & Plan (1) Acute phlegmonous appendicitis: Plan: Nonoperative management of acute phlegmonous appendicitis, continues to improve. Advance to low fiber diet Continue IV antibiotics Admission and Anticipated Discharge Date Admission Date: September 22, 2021 Subjective 35-year-old male being treated nonoperatively with IV antibiotics for acute phlegmonous appendicitis. Continues to feel much better, mild tenderness right lower quadrant. Tolerated full liquids. Physical Exam Constitutional: WD/WN, vitals as above Gastrointestinal (Abdomen): Percussion/Palpation: + abdomen tender (Mild tenderness to palpation right lower quadrant) and abdomen soft; no guarding and abdomen not rigid Results & Data ([facility]) Vital Signs (Past 12 Hours) Vital Signs Temp Pulse Resp BP Pulse Ox 09/25/21 08:01 37.0 C 73 16 114/68 99 Laboratory Results Laboratory Results - last 24 hr 09/25/21 09/25/21 06:24 06:24 WBC 7.25 RBC 3.10 L Hgb 9.7 L Hct 29.2 L MCV 94.2 MCH 31.3 MCHC 33.2 RDW Std Deviation 47.1 H RDW Coeff of Courtney 13.6 Plt Count 219 MPV 9.5 Immature Gran % (Auto) 0.1 Neut % (Auto) 60.1 Lymph % (Auto) 20.0 [place] % (Auto) 17.7 Eos % (Auto) 1.8 Baso % (Auto) 0.3 Neut # (Auto) 4.36 Lymph # (Auto) 1.45 [place] # (Auto) 1.28 H Eos # (Auto) 0.13 Baso # (Auto) 0.02 Immature Gran # (Auto) 0.01 Sodium 139 Potassium 3.9 Chloride 108 H Carbon Dioxide 25 Anion Gap 6.0 BUN 2 L Creatinine 0.73 Est Cr Clr Drug Dosing 161.7 Est GFR ( Amer) 140.3 Est GFR (Non-Af Amer) 121.0 BUN/Creatinine Ratio 3.0 L Glucose 94 Calcium 9.0 PG Care Time/CCT Total # of Minutes Spent Total Time Spent with Patient: Total time spent is greater than 50% in coordination of care (as documented) at patient's floor/unit and/or counseling patient: Coding Level of Care Code 55867 Subseq Hosp Care Lvl 2 Diagnoses Acute phlegmonous appendicitis K35.890
[2021-09-26] MEDS: PIPERACILLIN/TAZOBACTAM 3.375 GM in DEXTROSE 5% 100 ML IV SCH ×3 (01:17→17:02)
--- NOTE | 2021-09-26 07:36 | Surgery Progress Note ---
Date of Service September 26, 2021 Assessment & Plan (1) Acute phlegmonous appendicitis: Plan: Medically patient is doing very well We will repeat his CAT scan to be sure he does not developing a significant abscess which would need to be drained Continue IV antibiotics for now Continue his diet after the CT Consider oral antibiotics tomorrow and discharge home later in the day is a possibility Would likely try Cipro/Flagyl Admission and Anticipated Discharge Date Admission Date: September 22, 2021 Subjective Patient awake and alert he is afebrile since Sunday He is doing well on low fiber diet His pain is much improved Review of Systems Review of Systems: All systems reviewed & are unremarkable except as noted in HPI & below Physical Exam Constitutional: WD/WN, vitals as above Eyes: + anicteric sclerae Respiratory: normal respiratory effort; no respiratory distress Cardiovascular: Rate/Rhythm: regular rate Gastrointestinal (Abdomen): Percussion/Palpation: abdomen soft; abdomen nontender (Mild tenderness to palpation right lower quadrant), no guarding and abdomen not rigid Musculoskeletal: Extremities warm and dry Neurologic: Awake Psychiatric: Alert Results & Data ([facility]) Vital Signs (Past 12 Hours) Vital Signs Temp Pulse Resp BP Pulse Ox 09/25/21 22:50 37.0 C 76 16 113/65 96 PG Care Time/CCT Total # of Minutes Spent Total Time Spent with Patient: Total time spent is greater than 50% in coordination of care (as documented) at patient's floor/unit and/or counseling patient: Coding Level of Care Code 43178 Subseq Hosp Care Lvl 3 Diagnoses Acute phlegmonous appendicitis K35.890
[2021-09-26] MEDS: HEPARIN SOD 5,000 UNIT/0.5 ML VIAL SQ SCH ×2 (08:48→20:03)
[2021-09-26] MEDS ORDERED: OPTIRAY 320 100ml IV ONE (09:23)
--- NOTE | 2021-09-26 09:41 | CT Scan Report ---
ABDOMEN AND PELVIS CT WITH IV AND ORAL CONTRAST CT DOSE: 301.22 mGy.cm HISTORY: Acute right lower quadrant abdominal pain Ruptured appendix with phlegmon TECHNIQUE: Multiaxial CT images of the abdomen and pelvis were performed following the IV administrat ion of 95 cc of Optiray and oral contrast. A dose lowering technique was utilized adhering to the pr inciples of TERRI. COMPARISON STUDY: CT abdomen and pelvis 09/22/2021 FINDINGS: The imaged inferior cardiac chambers are unremarkable. Clear lung bases. Calcified granulom a of the basal right lower lobe. The spleen, pancreas, mildly contracted gallbladder and adrenal glan ds are unremarkable. Hepatic steatosis. Patent portal vein. Unremarkable kidneys. No hydronephrosis. Partial distention of the urinary bladder with mild wall thickening. The prostate is upper limits of normal in size. Aorta and IVC are unremarkable. No pathologically enlarged lymph nodes are identified . There is no bowel obstruction. Mild wall thickening of the inferior rectum and anorectal junction wit h partial distention. 1.5 cm appendicolith is noted within the base of the appendix. The appendix is dilated and inflamed measuring up to 1.5 cm transversely with thickened wall and mucosal hyperemia. P eriappendiceal inflammatory stranding with periappendiceal free fluid is redemonstrated which now gaurang ears to be more localized with decreased inflammation of the right pericolic gutter there are several small peripherally enhancing fluid collections adjacent to the inflamed appendix measuring up to 2.2 x 1.5 cm. No pneumoperitoneum. No acute fracture. IMPRESSION: 1. Ruptured acute appendicitis redemonstrated with 1.5 cm appendicolith. Small loculated periappendic eal abscesses measure up to 2.2 cm. No drainable fluid collection is identified. The degree of inflam mation within the abdominal right lower quadrant has slightly improved from 09/22/2021. 2. No bowel obstruction or pneumoperitoneum. 3. Hepatic steatosis. ACT 112: Negative or not required by law. The above report was generated using voice recognition software. It may contain grammatical, syntax o r spelling errors. Electronically signed by: Guido Silva M.D. 09/26/2021 9:39 AM
[2021-09-27] MEDS: PIPERACILLIN/TAZOBACTAM 3.375 GM in DEXTROSE 5% 100 ML IV SCH (00:52)
[2021-09-27] MEDS ORDERED: metroNIDAZOLE 500 MG TAB PO SCH (09:00)
[2021-09-27] MEDS ORDERED: CIPROFLOXACIN 500 MG TAB PO SCH (09:00)
[2021-09-27] MEDS: HEPARIN SOD 5,000 UNIT/0.5 ML VIAL SQ SCH (09:23)
--- NOTE | 2021-10-18 18:11 | Discharge Summary (DS) ---
DATE OF ADMISSION: 09/22/2021 DATE OF DISCHARGE: 09/27/2021 PRINCIPAL DIAGNOSIS: Ruptured appendix with phlegmon. HISTORY OF PRESENT ILLNESS: The patient is a 35-year-old male presenting through the Emergency Room with diagnosis of a ruptured appendix with phlegmon. HOSPITAL COURSE: The patient was admitted to the hospital, placed on IV antibiotics and initial estefani l rest, he did very well and was gradually advanced with his diet and activity and maintained on IV a ntibiotics until approximately ___ when he was discharged home on oral antibiotics for 2-3 we eks. He is to be followed in the surgical clinic with a repeat CAT scan at some point. Job ID: [id number]
== END 2021-09-27 10:38 | disposition home or self-care (01) | DRG 373 ==
LOC: ED 16:09 → 3N 21:58